=== PATIENT | male | born 1945 | race Caucasian/White ===

== ENCOUNTER 2019-11-04 23:41 | Emergency (ER) | payer OTHER, SELFPAY ==
[2019-04-03 13:09] VITALS: BMI 36.2
[2019-11-04 23:45] VITALS: BP 163/91; PULSE 53; RESP 14; TEMP 36.4; O2SAT 96; BMI 32.3
[2019-11-05 00:03] VITALS: BP 163/91; PULSE 57; RESP 19; TEMP 36.4; O2SAT 96
--- NOTE | 2019-11-05 00:04 | ED.RN ---
RN CALLED FOR EKG, PULLED OLD EKGS FOR
--- NOTE | 2019-11-05 00:15 | EKG12_ITS ---
Test Reason : CP Blood Pressure : / mmHG Vent. Rate : 065 BPM Atrial Rate : 120 BPM P-R Int : 000 ms QRS Dur : 090 ms QT Int : 468 ms P-R-T Axes : 000 036 063 degrees QTc Int : 486 ms Normal sinus rhythm with Premature atrial complexes Prolonged QT Abnormal ECG Confirmed by TORRES MANNING, SHANT ([id number]), telegraph editor SARAH RENTERIA ([id number] on 11/08/2019 2:59:54 PM Referred By: MITZY Confirmed By:SHANT MACDONALD MD
--- NOTE | 2019-11-05 00:16 | ED.DCSUM_ITS ---
History of Present Illness Chief Complaint: Alt LOC Informant: Patient, Family, Seafood Packer Onset: Today Narrative: Patient states he has a history of atrial fibrillation is maintained on Eliquis, metoprolol, and sotalol. He sees [facility] cardiology. He states that he has had 3 cardioversions in the past. Today he was in his usual state of health. He carried some heavy trash bags out to the trash. When he was done he noted a pain nonpleuritic in the right upper chest. He states he felt fatigued and nauseous and went and laid down. Reportedly his found him unresponsive called 911 and started CPR. When EMS arrived she was awake and talking but c onfused. States he remembers feeling clammy. tells me that when he was laying down he asked for cold washcloth. Her and her daughter left the room and when they came back after hearing a weird noise and they went in and found him staring off with saliva at the mouth. They called 911 pulled him to the ground was instructed to give CPR. After about 30 compressions patient stated that it hurt and began to come around. Patient has a history of paroxysmal A. fib and most recently in June had electrical cardioversion. He states [facility] cardiology in [place]. He is maintained on Toprol and sotalol and reports that he increased his metoprolol to 100 mg but cannot tell me exactly when that change occurred. Past Medical History - Allergies and Home Meds Allergies/Adverse Reactions: Allergies Penicillins Allergy (Verified 06/22/13 12:41) Other shellfish derived Allergy (Verified 06/22/13 17:11) Vomiting amiodarone Adverse Reaction (Verified 11/05/19 00:05) Rash Primary Care Physician: Rayo Allred MD [Primary Care Provider] - As soon as possible Surgical History: - - Facetectomy, he has had 2 esophageal dilatations. 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 Denies: Chills, Fever, Sweats Eyes: Denies: Visual changes - bilaterally, Diplopia ENT: Denies: Rhinorrhea, Sore throat Cardiovascular: Reports: Chest pain. Denies: Palpitations Respiratory: Denies: Dyspnea, Cough, Dyspnea on exertion Gastrointestinal: Reports: Nausea. Denies: Abdominal pain, Vomiting, Diarrhea, Melena, Hematochezia Genitourinary: Denies: Dysuria, Hematuria, Frequency Musculoskeletal: Denies: Back pain, Extremity Pain Skin: Denies: Rash, Wounds Neurological: Denies: Headache, Weakness, Numbness Physical Exam Vital Signs/Narrative: Vital Signs Temp Pulse Resp BP Pulse Ox 11/05/19 00:03 97.6 F L 57 L 19 H 163/91 H 96 11/04/19 23:45 97.6 F L 53 L 14 163/91 H 96 General: Well nourished, Well developed, No Acute Distress Head: Normocephalic, Atraumatic Eyes: Perrl, EOMI ENT: Moist mucous membranes, No rhinorrhea Neck: Supple, Nontender Cardiovascular: No murmurs, Irregular Respiratory: No distress, CTA bilaterally, Chest nontender Abdomen: Soft, Nontender, Nondistended, Normal bowel sounds Back: Nontender, Normal Inspection Extremities: Nontender, No edema Skin: Normal color, No rash Neurological: Alert, Oriented x3, Cranial nerves II-XII grossly intact, Normal Strength, Normal Sensation Psychological: Normal affect, Normal Mood Diagnostic/Tx/Re-eval - EKG Initial EKG Interpretation: Atrial Fibrillation - Initial EKG shows atrial fibrillation at a rate of 65. No concerning features of ACS. - Medical Decision Making Initial EKG is probably sinus with frequent PACs but could possibly be A. fib. While in the room he did have a change in the monitor and what seemed more regular and less PACs. There were several pauses noted where his heart rate would go from 60s to the 30s but only for 1 beat. Basic labs were negative troponin negative. Head CT and chest x-ray were negative. Patient was observed on the monitor. At the hospital speak with the patient but is not sure he wants to stay here he may want to go to [place]. After a time to deliberate he is decided he like to go home. He wonders if he should cut his metoprolol in half as his heart resting heart rate right now is in the 60s difficult to say. He like a copy of his labs his EKGs so that he can talk with his welder fitter gas tomorrow. While I think it is probably better for the patient to stay in the hospital he would be transferred to [place] he has capacity to make this decision. I asked specifically if he would like to discuss this with his and his family and he declines. ED Disposition - Plan for ED Patient: Disposition: Home or Assisted Living Diagnosis: Unresponsive episode, Bradycardia, Paroxysmal atrial fibrillation Instructions: Causes of Syncope, ED AFIB Referrals: Rayo Allred MD [Primary Care Provider] - As soon as possible Additional Instructions: These contact your welder fitter gas soon as possible. You are free to return at any point for further evaluation if needed..
--- NOTE | 2019-11-05 00:20 | EKG12_ITS ---
Test Reason : CP Blood Pressure : / mmHG Vent. Rate : 056 BPM Atrial Rate : 056 BPM P-R Int : 172 ms QRS Dur : 098 ms QT Int : 482 ms P-R-T Axes : 057 036 062 degrees QTc Int : 465 ms Sinus bradycardia with Premature supraventricular complexes Otherwise normal ECG Confirmed by TORRES MANNING, SHANT ([id number]), videotape editor SARAH RENTERIA ([id number]) on 11/08/2019 3:00:09 PM Referred By: MITZY Confirmed By:SHANT MACDONALD MD
--- NOTE | 2019-11-05 00:26 | CT_ITS ---
HISTORY: AMS-PT FOUND UNRESPONSIVE,ALERT ND ORIENTED NOWHX:A-FIB,HTN ADDITIONAL HISTORY: None provided. COMPARISON: 09/20/2010 TECHNIQUE: Axial, coronal and sagittal CT images were obtained of the brain without intravenous contrast. Number of images including paperwork: 259. A radiation dose optimization technique was used for this scan. FINDINGS: BRAIN: No acute hemorrhage or mass. No definite acute infarct; MRI more sensitive. White matter hypodensity is nonspecific but most commonly seen with chronic ischemic changes. Generalized atrophy. VENTRICULAR SYSTEM: No hydrocephalus. PARANASAL SINUSES AND MASTOIDS: No air-fluid level in the imaged extent. Mild mucosal thickening noted. ORBITS: Unremarkable imaged extent. SKELETON AND SOFT TISSUES: Calvarium intact. ASPECTS score: Not applicable. CT/Brain/Head without Contrast IMPRESSION: No acute intracranial abnormality. Chronic involutional and white matter changes. Individualized dose optimization techniques were used for this CT. at 0101 Reported and signed by: Antonina Deutsch MD Electronically Signed: Antonina Deutsch MD at 1:01 EDT Tel , Service support ,
--- NOTE | 2019-11-05 00:40 | RAD_ITS ---
HISTORY: found unresponsive by . chest pain upper right chest. hx of afib/flutter, has been cardioverted before. ADDITIONAL HISTORY: None provided. TECHNIQUE: Frontal chest radiograph. Number of images including paperwork: 1 COMPARISON: 06/22/2013 FINDINGS: LUNGS AND PLEURA: No consolidation, mass or pleural effusion. CARDIAC SILHOUETTE: Unremarkable. MEDIASTINUM AND ELSA: Aortic tortuosity. UPPER ABDOMEN: Unremarkable. SKELETON AND SOFT TISSUES: No acute findings. Degenerative changes. OTHER DEVICES AND HARDWARE: None. RAD/Chest 1 View (Portable) IMPRESSION: No acute cardiopulmonary abnormality. at 0058 Reported and signed by: Antonina Deutsch MD Electronically Signed: Antonina Deutsch MD at 0:57 EDT Tel , Service support ,
[2019-11-05 00:59] LABS: ALB/GLOB Ratio 1.2 RATIO (0.9-2.4); AST(SGOT) 33 U/L (15-37); Alanine Aminotransfer ALT/SGPT 35 U/L (16-61); Albumin, Serum 3.6 g/dL (3.2-5.0); Alkaline Phosphatase 93 U/L (45-117); Anion Gap 8 (5-15); BUN 13 mg/dL (7-18); BUN/Creat Ratio 12.6 RATIO (10-20); Calcium,Total 8.9 mg/dL (8.5-10.1); Chloride 105 mmol/L (98-107); Creatinine, Serum 1.03 mg/dL (0.70-1.30); EST Glomerular Filtration Rate 75 mL/min (>60); Est Glom Filt Rate - Afr Amer 90 mL/min (>60); Glucose 166 mg/dL (74-106); Magnesium 2.2 mg/dL (1.6-2.6); Potassium 3.7 mmol/L (3.5-5.1); Protein, Total 6.6 g/dL (6.4-8.2); Sodium Level 141 mmol/L (136-145)
[2019-11-05 01:02] LABS: Absolute Lymphocyte Count 1.18 X10^3/uL (0.83-4.51); Absolute Neutrophil Count 8.3 X10^3/uL (2.0-7.7); Basophil# 0.05 X10^3/uL; Basophil% 0.5 % (0-1); Eosinophil# 0.47 X10^3/uL; Eosinophils% 4.4 % (0-5); Hematocrit 46.9 % (40-54); Hemoglobin 15.5 g/dL (13.0-16.5); Lymphocyte # 1.18 X10^3/ul (4.0); Lymphocyte % 11.1 % (19-41); Mean Corpuscular Volume 87.7 fL (80-94); Monocyte# 0.62 X10^3/uL; Monocyte% 5.8 % (0-10); NRBC Flagged by Analyzer 0 % (0-5); Neutrophil # 8.27 X10^3/uL (2.7-7.7); Neutrophil % 77.9 % (47-70); Platelet Count 207 K/mm3 (150-450); RBC Distribution Width CV 13.8 % (11.6-14.6); RBC Distribution Width SD 43.8 fl (35.1-43.9); Red Blood Count 5.35 M/mm3 (4.6-6.2); White Blood Count 10.6 K/mm3 (4.4-11.0)
--- NOTE | 2019-11-05 01:58 | ED.RN ---
Pt stating to this nurse that he is wanting to go home. Dr Milner made aware.
[2019-11-05 01:59] VITALS: BP 162/73; PULSE 63; RESP 15; TEMP 36.6; O2SAT 99
[2019-11-05 02:06] VITALS: BP 162/73; PULSE 63; RESP 15; TEMP 36.6; O2SAT 98
--- NOTE | 2019-11-05 02:08 | ED.RN ---
Dr Milner spoke with patient and patient still choosing to leave.
== END 2019-11-05 02:16 | disposition home or self-care (01) ==
PROVIDERS: Emergency Provider Emergency Medicine; PCP Internal Medicine
DX: R55 Syncope and collapse (principal); R00.1 Bradycardia, unspecified; I48.0 Paroxysmal atrial fibrillation; Z87.891 Personal history of nicotine dependence; Z79.01 Long term (current) use of anticoagulants; Z88.0 Allergy status to penicillin
CPT/HCPCS: 70450; 71045; 80053; 83735; 84484; 85025; 93005; 99285; A4216

== ENCOUNTER 2022-05-15 14:05 | Emergency (ER) | payer OTHER, MEDICARE, SELFPAY ==
[2022-05-15] VITALS (8 sets, daily range): BP systolic 96–144; BP diastolic 80–104; PULSE 75–163; RESP 10–28; TEMP 36.2–36.4; O2SAT 88–100; BMI 29.4
--- NOTE | 2022-05-15 14:34 | RAD_ITS ---
STUDY: X-RAY CHEST REASON FOR EXAM: Male, 77 years old. Chest pain. Weakness. TECHNIQUE: Single AP portable view of the chest. COMPARISON: Comparison is made with prior study dated 11/05/2019. FINDINGS: EKG lead is seen. Elevation of the right hemidiaphragm. Patchy infiltrate in the right lower lobe with the small right pleural effusion. Mild increased markings at the left lung base. Sternal cerclage wires and vascular clips are present from a prior sternotomy and coronary artery bypass graft procedure (CABG). Prior aortic valve replacement. Normal mediastinum and jamil. Normal visualized pulmonary arteries. Normal visualized aortic arch and descending thoracic aorta. Normal visualized thoracic spine. Normal visualized ribs, clavicles, and shoulders. Hiatal hernia. RAD/Chest 1 View (Portable) IMPRESSION: Small left pleural effusion with right basilar infiltrate. Mild degree of increased markings at the left lung base. Follow-up is recommended. Electronically Signed: Mervin Vora MD at 15:33 EST ,
[2022-05-15 14:44] LABS: Absolute Lymphocyte Count 1.88 X10^3/uL (0.83-4.51); Absolute Neutrophil Count 6.8 X10^3/uL (2.0-7.7); Basophil# 0.05 X10^3/uL; Basophil% 0.5 % (0-1); Eosinophil# 0.09 X10^3/uL; Eosinophils% 0.9 % (0-5); Hematocrit 48.7 % (40-54); Hemoglobin 15.4 g/dL (13.0-16.5); Lymphocyte # 1.88 X10^3/ul (0.83-4.51); Lymphocyte % 19.3 % (19-41); Mean Corp Hgb Conc 31.6 g/dL (32-36); Mean Corpuscular Hgb 28.4 pg (27.0-32.0); Mean Corpuscular Volume 89.9 fL (80-94); Mean Platelet Vol. 11.5 fl (6.2-12.0); Monocyte# 0.83 X10^3/uL; Monocyte% 8.5 % (0-10); NRBC Flagged by Analyzer 0 % (0-5); Neutrophil # 6.84 X10^3/uL (2.7-7.7); Neutrophil % 70.5 % (47-70); Platelet Count 219 K/mm3 (150-450); RBC Distribution Width CV 14.7 % (11.6-14.6); RBC Distribution Width SD 48.6 fl (35.1-43.9); Red Blood Count 5.42 M/mm3 (4.6-6.2); White Blood Count 9.7 K/mm3 (4.4-11.0)
[2022-05-15 14:53] LABS: International Normalized Ratio 1.3; Prothrombin Time (Protime)PT. 15.9 SECONDS (11.7-14.9)
[2022-05-15 14:54] LABS: Partial Thromboplast Time 39.9 Seconds (24.1-36.2)
[2022-05-15 15:02] LABS: BNP,B-Type NATRIURETIC PEPTIDE 273.8 pg/mL (0-100)
[2022-05-15 15:08] LABS: ALB/GLOB Ratio 1.2 RATIO (0.9-2.4); AST(SGOT) 28 U/L (15-37); Alanine Aminotransfer ALT/SGPT 50 U/L (16-61); Albumin, Serum 3.5 g/dL (3.2-5.0); Alkaline Phosphatase 117 U/L (45-117); Anion Gap 6 (5-15); BUN 21 mg/dL (7-18); Calcium,Total 9.5 mg/dL (8.5-10.1); Chloride 102 mmol/L (98-107); EST Glomerular Filtration Rate 52 mL/min (>60); Est Glom Filt Rate - Afr Amer 63 mL/min (>60); Glucose 142 mg/dL (74-106); Magnesium 2.7 mg/dL (1.6-2.6); Potassium 4.5 mmol/L (3.5-5.1); Protein, Total 6.5 g/dL (6.4-8.2); Sodium Level 139 mmol/L (136-145); Thyroid Stim Hormone (TSH) 3.88 uIU/mL (0.358-3.74)
--- NOTE | 2022-05-15 15:16 | ED.RN ---
episodes of bradycardic HR in 30s printed from monitor. pt denies feeling SOB or chest pain with HR in 160s.
[2022-05-15] MEDS: fentaNYL 100 MCG/2 ML Ampul 25 MCG IV (16:32)
[2022-05-15] MEDS: Etomidate 20 MG/10 ML Vial 14 MG IV (16:32)
--- NOTE | 2022-05-15 16:50 | EX.ED.DYSGE1 ---
HPI History of Present Illness Chief Complaint: General Illness Informant: patient Narrative Narrative: 77-year-old male presenting to the emergency room with sensation that his heart is racing. Patient notes that in 1999 he had triple bypass surgery and is currently on apixaban sotalol and metoprolol. He also takes supplemental magnesium. He does remember having a cardiac arrest in 1999 that led to his transfer as well as postoperatively having atrial fibrillation. He notes he has not missed any doses of his apixaban recently. He denies chest pain. [facility] Medical History Atrial fibrillation Coronary artery disease GERD (gastroesophageal reflux disease) Hypertension Sleep apnea Home Medications Tumeric Root Extract 500 mg PO DAILY 06/22/13 [History Last Taken Unknown] coenzyme Q10 50 mg-vitamin E 5 unit capsule (Co Q-10 (with Vit E)) 1 ea PO DAILY 06/22/13 [History Last Taken Unknown] loratadine 10 mg tablet (Allergy Relief (loratadine)) 10 mg PO DAILY PRN PRN Allergies 06/22/13 [History Last Taken Unknown] multivitamin with folic acid 400 mcg tablet (Thera) 1 tab PO DAILY 06/22/13 [History Last Taken Unknown] Mita [place] 1 tab PO DAILY 11/05/19 [History Last Taken Unknown] apixaban 5 mg tablet 5 mg PO BID 11/05/19 [History Last Taken Unknown] magnesium oxide 400 mg PO DAILY 11/05/19 [History Last Taken Unknown] metoprolol succinate 100 mg capsule sprinkle, ext. release 24 hr 100 mg PO DAILY 11/05/19 [History Last Taken Unknown] sotalol 80 mg tablet 80 mg PO BID 11/05/19 [History Last Taken Unknown] Allergy/AdvReac Type Severity Reaction Status Date / Time Penicillins Allergy Other Verified 05/15/22 14:13 shellfish derived Allergy Vomiting Verified 05/15/22 14:13 amiodarone AdvReac Rash Verified 05/15/22 14:13 Surgical History Hx of CABG Social History Smoking Status: Former smoker ROS ROS ED Constitutional Constitutional ED: Denies chills or weight loss Eyes Eyes: Denies change in vision or diplopia ENT ENT ED: Denies ear pain, rhinorrhea or sore throat Cardiovascular Cardiovascular: Reports palpitations and racing heartbeat; Denies chest pain or orthopnea Respiratory/Chest Respiratory/Chest: Denies cough, dyspnea or orthopnea Gastrointestinal Gastrointestinal: Denies abdominal pain, diarrhea, nausea or vomiting Genitourinary Genitourinary ED: Denies dysuria, hematuria or urinary frequency Musculoskeletal Musculoskeletal: Denies arthralgias or myalgias Integumentary Denies abscess or rash Neurologic Neurologic: Denies headache(s) or weakness Psychiatric Psychiatric: Denies anxiety, depression, suicidal ideation or suicidal thoughts Endocrine Endocrinology: Denies polydipsia, polyphagia or polyuria Allergic/Immunologic Allergic/Immunologic ED: Denies mouth swelling, tongue swelling or urticaria EXAM Physical Exam Const Vital Signs: 05/15/22 14:07 05/15/22 14:39 05/15/22 15:15 Temperature 97.1 F L Temperature Source Temporal Pulse Rate 163 H Pulse Rate [1 (Initial Baseline)] Pulse Rate [2] Pulse Rate [3] Respiratory Rate 18 22 H Respiratory Rate [1 (Initial Baseline)] Respiratory Rate [2] Respiratory Rate [3] Respiratory Effort Normal Non-Labored Respiratory Pattern Normal Blood Pressure 96/80 98/83 H Blood Pressure [1 (Initial Baseline)] Blood Pressure [2] Blood Pressure [3] Blood Pressure Mean 85 88 Pulse Ox 98 Oxygen Delivery Method Room Air Room Air Oxygen Delivery Method [2] Oxygen Delivery Method [3] Oxygen Flow Rate (L/min) [2] Oxygen Flow Rate (L/min) [3] 05/15/22 16:20 05/15/22 16:37 Temperature 97.5 F L Temperature Source Pulse Rate 156 H Pulse Rate [1 (Initial Baseline)] 162 H Pulse Rate [2] 78 Pulse Rate [3] 75 Respiratory Rate 20 H Respiratory Rate [1 (Initial Baseline)] 28 H Respiratory Rate [2] 16 Respiratory Rate [3] 10 L Respiratory Effort Respiratory Pattern Blood Pressure 113/81 H Blood Pressure [1 (Initial Baseline)] 102/89 H Blood Pressure [2] 132/104 H Blood Pressure [3] 135/99 H Blood Pressure Mean Pulse Ox 97 Oxygen Delivery Method Room Air Oxygen Delivery Method [2] Nasal Cannula Oxygen Delivery Method [3] Nasal Cannula Oxygen Flow Rate (L/min) [2] 4 Oxygen Flow Rate (L/min) [3] 4 Positive well nourished, well developed and obese General Appearance ED: well developed Nutritional Appearance: obese HEENT Reports normocephalic, head/scalp atraumatic and moist mucous membranes Eyes PERRL and EOMs intact bilaterally Neck no lymphadenopathy, supple and no JVD Resp normal respiratory effort and clear to auscultation bilaterally Cardio no murmurs Rate: tachycardic Rhythm: abnormal rhythm irregularly irregular GI normal to inspection, nondistended, normoactive bowel sounds and non-tender Palpation: soft Back/Spine no CVA tenderness and normal ROM Extremity normal to inspection General Extremety ED: Negative for edema General Extremity: Negative for edema Neuro oriented x3 and CN's II-XII intact bilaterally Sensorium / Orientation: alert Motor Exam: strength 5/5 throughout Psych mental status grossly normal Mood & Affect: Negative for depressed or tearful Skin no rashes or lesions noted and no wounds MDM MDM MDM Narrative Medical decision making narrative: EKG was obtained which confirms atrial fibrillation with a ventricular rate of 163 bpm. Basic blood work was checked and is negative. My interpretation of the chest x-ray is no acute process. Patient provided written and informed consent for the use of etomidate for procedural sedation for electrical cardioversion. I think this is a very safe option for him that would allow him not to have to be admitted to the hospital for successful as he has been reportedly very stable on his medicines and not missed any blood thinning doses. Patient received 0.15 mix per keg of etomidate. He also received a small dose of fentanyl. Once adequate sedation was obtained the patient underwent a 200 J synchronized shock to the heart which resulted in return to sinus rhythm. Patient was allowed to recover. He did have a short episode of apnea. At this point patient will be discharged and instructions to follow-up with his accounts payable analyst who is in [place] Lab Data Attestation: I reviewed the patient's lab results. Labs: Laboratory Results - last 24 hr 05/15/22 05/15/22 05/15/22 14:34 14:34 14:34 WBC 9.7 RBC 5.42 Hgb 15.4 Hct 48.7 MCV 89.9 MCH 28.4 MCHC 31.6 L RDW Std Deviation 48.6 H RDW Coeff of David 14.7 H Plt Count 219 MPV 11.5 Immature Gran % (Auto) 0.300 Neut % (Auto) 70.5 H Lymph % (Auto) 19.3 Pope % (Auto) 8.5 Eos % (Auto) 0.9 Baso % (Auto) 0.5 Absolute Neuts (auto) 6.8 Absolute Lymphs (auto) 1.88 Nucleated RBC % 0 PT 15.9 H INR 1.3 APTT 39.9 H Sodium 139 Potassium 4.5 Chloride 102 Carbon Dioxide 31.0 Anion Gap 6 BUN 21 H Creatinine 1.40 H Estim Creat Clear Calc 44.90 Est GFR (MDRD) Af Amer 63 Est GFR (MDRD) Non-Af 52 L BUN/Creatinine Ratio 15.0 Glucose 142 H Calcium 9.5 Magnesium 2.7 H Total Bilirubin 1.30 H AST 28 ALT 50 Alkaline Phosphatase 117 B-Natriuretic Peptide Total Protein 6.5 Albumin 3.5 Globulin 3.0 Albumin/Globulin Ratio 1.2 TSH 3.88 H 05/15/22 14:34 WBC RBC Hgb Hct MCV MCH MCHC RDW Std Deviation RDW Coeff of David Plt Count MPV Immature Gran % (Auto) Neut % (Auto) Lymph % (Auto) Pope % (Auto) Eos % (Auto) Baso % (Auto) Absolute Neuts (auto) Absolute Lymphs (auto) Nucleated RBC % PT INR APTT Sodium Potassium Chloride Carbon Dioxide Anion Gap BUN Creatinine Estim Creat Clear Calc Est GFR (MDRD) Af Amer Est GFR (MDRD) Non-Af BUN/Creatinine Ratio Glucose Calcium Magnesium Total Bilirubin AST ALT Alkaline Phosphatase B-Natriuretic Peptide 273.8 H Total Protein Albumin Globulin Albumin/Globulin Ratio TSH Radiography Diagnostic Testing: Clinical Impression(s) from Imaging Studies Chest X-Ray 05/15/22 14:34 IMPRESSION: Small left pleural effusion with right basilar infiltrate. Mild degree of increased markings at the left lung base. Follow-up is recommended. Electronically Signed: Mervin Vora MD at 15:33 EST , Discharge Plan Triage Chief Complaint: General Illness ED Provider: Yossi Milner Dx/Rx/DC Orders Clinical Impression: Obstructive sleep apnea of adult, Hypertension, Paroxysmal atrial fibrillation Instructions: AFib Prescriptions: No Action loratadine [Allergy Relief (loratadine)] 10 MG tablet 10 mg PO DAILY PRN PRN (Reason: Allergies) Label Comments: Allergies Only during spring summer and fall coenzyme [id number] [Co Q-10 (with Vit E)] 1 EACH capsule 1 ea PO DAILY Label Comments: Joint health multivitamin with folic acid [Thera] 1 TABLET tablet 1 tab PO DAILY Label Comments: Multivitamin Tumeric Root Extract 500 MG tablet 500 mg PO DAILY Label Comments: Antioxidant sotalol 80 MG tablet 80 mg PO BID apixaban 5 MG tablet 5 mg PO BID metoprolol succinate 100 MG capsule,sprinkle,ER 24hr 100 mg PO DAILY magnesium oxide 400 MG tablet 400 mg PO DAILY Mita [place] 1 tab PO DAILY Primary Care Provider: Rayo Allred Referrals: Rayo Allred MD [Primary Care Provider] - Activity Restrictions/Additional Instructions: Please follow-up with your accounts payable analyst as soon as possible Disposition Disposition: Home, Self Care
--- NOTE | 2022-05-15 17:06 | ED.RN ---
post procedure, pt was having periods of apnea, respiratory therapy used ambubag briefly.
== END 2022-05-15 17:53 | disposition home or self-care (01) ==
PROVIDERS: Emergency Provider Emergency Medicine; PCP Internal Medicine; Visit Provider Emergency Medicine
DX: G47.33 Obstructive sleep apnea (adult) (pediatric) (principal); I48.0 Paroxysmal atrial fibrillation; Z87.891 Personal history of nicotine dependence; I10 Essential (primary) hypertension; I25.10 Atherosclerotic heart disease of native coronary artery without angina pectoris; K21.9 Gastro-esophageal reflux disease without esophagitis; Z95.1 Presence of aortocoronary bypass graft; R07.9 Chest pain, unspecified; R53.1 Weakness; E66.9 Obesity, unspecified
CPT/HCPCS: 71045; 80053; 83735; 83880; 84443; 85025; 85610; 85730; 93005; 99284; J7040; A4216

== ENCOUNTER 2022-07-18 15:06 | Inpatient (IN) | payer MEDICARE, SELFPAY ==
[2022-07-18] VITALS (15 sets, daily range): BP systolic 82–115; BP diastolic 60–98; PULSE 81–160; RESP 18–27; TEMP 36–36.6; O2SAT 94–99; BMI 31.5; BMI 33.0
--- NOTE | 2022-07-18 15:35 | EKG12_ITS ---
Test Reason : Blood Pressure : / mmHG Vent. Rate : 164 BPM Atrial Rate : 000 BPM P-R Int : 000 ms QRS Dur : 082 ms QT Int : 298 ms P-R-T Axes : 000 049 173 degrees QTc Int : 492 ms Supraventricular tachycardia T wave abnormality, consider lateral ischemia Abnormal ECG Confirmed by TORRES MANNING, SHANT ([id number]), health editor DARREL WYNN ([id number]) on 07/22/2022 10:35:28 AM Referred By: NIDA Confirmed By:SHANT MACDONALD MD
--- NOTE | 2022-07-18 15:36 | EDS_ITS ---
HPI History of Present Illness Chief Complaint: Shortness of Breath Narrative Narrative: 77-year-old male past medical history of GERD, hypertension, states has been short of breath for the last few weeks. He saw his primary care provider on the , 8 days ago, and was diagnosed with SVT. He states he has not followed up with cardiology regarding this. He states his heart rate was in the 160 his back then, but he has never had to come to the emergency department. He is having continued shortness of breath and mild dyspnea on exertion. He has chronic leg swelling but states they are not more swollen than usual. He presents mainly because of the shortness of breath that has been increasing over time. [facility] Medical History Atrial fibrillation Coronary artery disease GERD (gastroesophageal reflux disease) Hypertension Sleep apnea Home Medications apixaban 2.5 mg tablet (Eliquis) 2.5 mg PO BID AFIB 07/18/22 [History Last Taken 07/18/22] atorvastatin 80 mg tablet 80 mg PO DAILY CHOLESTEROL 07/18/22 [History Last Taken 07/18/22] magnesium 250 mg tablet 250 mg PO DAILY SUPPLEMENT 07/18/22 [History Last Taken 07/18/22] metoprolol succinate 100 mg tablet,extended release 24 hr 100 mg PO DAILY HEART 07/18/22 [History Last Taken 07/18/22] wboxxxwh-hspcwtmr-akssv acid 400 mcg-vit K 20 mcg-lycop 300 mcg tablet (One-A-Day Men's Multivitamin) 1 tab PO DAILY SUPPLEMENT 07/18/22 [History Last Taken 07/18/22] potassium gluconate 550 mg (90 mg) tablet 550 mg PO DAILY SUPPLEMENT 07/18/22 [History Last Taken 07/18/22] saw palmetto 450 mg capsule 450 mg PO DAILY SUPPLEMENT 07/18/22 [History Last Taken 07/18/22] Allergy/AdvReac Type Severity Reaction Status Date / Time Penicillins Allergy Other Verified 07/18/22 15:06 shellfish derived Allergy Vomiting Verified 07/18/22 15:06 amiodarone AdvReac Rash Verified 07/18/22 15:06 Surgical History Hx of CABG Social History Smoking Status: Former smoker ROS ROS ED ROS Narrative Constitutional: No fever, no chills. HEENT: No sore throat. No neck pain. No loss of vision. No rhinorrhea. Cardiovascular: No chest pain. No palpitations. Chronic bilateral pedal edema. Respiratory: Occasional nonproductive cough, positive dyspnea on exertion and shortness of breath. Abdominal: No abdominal pain. No nausea. No vomiting. Genitourinary: No dysuria. No hematuria. Musculoskeletal: No myalgias. No arthralgias. Neurologic: No headaches. No dizziness. No lightheadedness. Skin: No rash. No change in color. Psychiatric: No depression. No anxiety. EXAM Physical Exam Narrative Exam Narrative: Afebrile. Vital signs noted. HEENT: Normocephalic. Atraumatic. PERRL, EOMI. Neck soft and supple. No point tenderness or step off. Cardiovascular: Positive tachycardia in the 160s, no murmurs, rubs, or gallops appreciated. Respiratory: No tachypnea. Lungs clear to auscultation bilaterally. Gastrointestinal: Abdomen soft, nontender, with normoactive bowel sounds. No rebound or guarding. Neurological: Awake. Alert. Nonfocal, nonlateralizing. Skin: No rash. Normal color. No pallor. Musculoskeletal: Bilateral symmetric pedal edema. Full range of motion extremities. Const Vital Signs: 07/18/22 15:06 07/18/22 16:10 07/18/22 16:18 Temperature 96.8 F L Temperature Source Temporal Pulse Rate 160 H 152 H Respiratory Rate 18 20 H Respiratory Effort Respiratory Depth Respiratory Pattern Blood Pressure 115/89 H 105/88 H 98/80 Blood Pressure Mean 97 93 86 Blood Pressure Source Blood Pressure Position Blood Pressure Location Pulse Ox 99 99 Oxygen Delivery Method Room Air Nasal Cannula Oxygen Flow Rate (L/min) 2 07/18/22 16:48 07/18/22 16:06 07/18/22 17:27 Temperature 97.9 F Temperature Source Temporal Pulse Rate 151 H 160 H Respiratory Rate 20 H 23 H Respiratory Effort Normal Non-Labored Respiratory Depth Normal Respiratory Pattern Normal Blood Pressure 103/78 82/60 L Blood Pressure Mean 86 67 Blood Pressure Source Blood Pressure Position Blood Pressure Location Pulse Ox 95 Oxygen Delivery Method Room Air Room Air Room Air Oxygen Flow Rate (L/min) 07/18/22 18:30 07/18/22 18:52 Temperature Temperature Source Pulse Rate 160 H Respiratory Rate 19 H Respiratory Effort Respiratory Depth Respiratory Pattern Blood Pressure 88/62 L 101/88 H Blood Pressure Mean 70 92 Blood Pressure Source Monitor Blood Pressure Position Semi-Fowlers Blood Pressure Location Left Arm Pulse Ox Oxygen Delivery Method Oxygen Flow Rate (L/min) MDM MDM MDM Narrative Medical decision making narrative: Patient presents with chief complaint of shortness of breath, but has supraventricular tachycardia. Vagal maneuvers were attempted without success of reduction in his heart rate. Comprehensive work-up was pursued. He will be given adenosine 6 mg intravenously to see what his underlying rhythm is. Of note, he required another dose of adenosine. This time, it was 12 mg, and he had a brief pause which showed probable underlying atrial fibrillation. He was then given Lopressor 5 mg as he takes metoprolol. I reviewed his outpatient record from the [facility] during his outpatient visit/home-going instructions. He states he has a history of atrial fibrillation for which he takes Eliquis. However, his dosing is only 2.5 mg daily. He is unsure if he has taken a dose every day for the last 2 weeks, but is pretty sure. After 5 mg of Lopressor, his heart rate is in the 150s. He will be given an additional dose of Lopressor. I reviewed his laboratory work. CBC shows normal white count at 10.7, hemoglobin 15.8, platelet count of 221. Sodium slightly low at 135 with BUN of 46 and a creatinine of 1.97, glucose appropriately elevated at 121 with a low anion gap of 4. High-sensitivity troponin is 45. BNP is elevated at 682. I do feel that if he has been in atrial fibrillation with rapid ventricular response for a while that this may be contributing to the rise in his BNP. Chest x-ray obtained and interpreted by myself, there is a right lower lobe infiltrate with small pleural effusion. I reviewed the radiology report and they confirm. Although he does not have a white count or fever, given his shortness of breath he will be treated with Levaquin as he has an allergy to penicillins. He also has intolerance to lisinopril, so I do feel that given the uncertainty of his allergic reaction that this would be the better choice for community-acquired pneumonia. Blood cultures will be obtained along with COVID swab. I do feel that he will require admission not necessarily for his pneumonia, but for his atrial fibrillation with rapid ventricular response. His EKG was obtained and interpreted by myself which showed a clemens praventricular tachycardia at [address] changes. No STEMI. Additionally, further printouts from his office visits were reviewed that the patient had with him. He has had a tachycardia for the last few weeks. I discussed patient with Dr. Abdul. Patient will be admitted to the PCU. He had no response to his second dose of Lopressor so he was started on a Cardizem drip. Initially was held because of transient hypotension. He was given a small 500 cc bolus. Additionally, I do feel that it may be more rate dependent hypotension. Disposition is admit and stable condition. Lab Data Attestation: I reviewed the patient's lab results. Labs: Laboratory Results - last 24 hr 07/18/22 07/18/22 07/18/22 15:40 15:40 15:40 WBC 10.7 RBC 5.61 Hgb 15.8 Hct 48.8 MCV 87.0 MCH 28.2 MCHC 32.4 RDW Std Deviation 47.7 H RDW Coeff of David 15.1 H Plt Count 221 MPV 11.3 Immature Gran % (Auto) 0.400 Neut % (Auto) 72.3 H Lymph % (Auto) 15.6 L Throckmorton % (Auto) 11.0 H Eos % (Auto) 0.4 Baso % (Auto) 0.3 Absolute Neuts (auto) 7.7 Absolute Lymphs (auto) 1.66 Nucleated RBC % 0 Sodium 135 L Potassium 4.7 Chloride 102 Carbon Dioxide 29.0 Anion Gap 4 L BUN 46 H Creatinine 1.97 H Estim Creat Clear Calc 31.91 Est GFR (MDRD) Af Amer 43 L Est GFR (MDRD) Non-Af 35 L BUN/Creatinine Ratio 23.4 H Glucose 121 H Calcium 9.2 Troponin I High Sens 45 B-Natriuretic Peptide 682.6 H Radiography Diagnostic Testing: Clinical Impression(s) from Imaging Studies Chest X-Ray 07/18/22 16:20 IMPRESSION: Right basilar infiltrate. Mild cardiomegaly with interstitial edema and moderate right pleural effusion. Electronically Signed: Levar Cid MD at 16:58 EST , Discharge Plan Dx/Rx/DC Orders Clinical Impression: Atrial fibrillation with rapid ventricular response, Pneumonia, CHF (congestive heart failure) Disposition Disposition: Acute Care Hospital [facility] Discharge Date/Time: 07/18/22 19:26
[2022-07-18 16:04] LABS: Absolute Lymphocyte Count 1.66 X10^3/uL (0.83-4.51); Absolute Neutrophil Count 7.7 X10^3/uL (2.0-7.7); Basophil# 0.03 X10^3/uL; Basophil% 0.3 % (0-1); Eosinophil# 0.04 X10^3/uL; Eosinophils% 0.4 % (0-5); Hematocrit 48.8 % (40-54); Hemoglobin 15.8 g/dL (13.0-16.5); Lymphocyte # 1.66 X10^3/ul (0.83-4.51); Lymphocyte % 15.6 % (19-41); Mean Corp Hgb Conc 32.4 g/dL (32-36); Mean Corpuscular Hgb 28.2 pg (27.0-32.0); Mean Platelet Vol. 11.3 fl (6.2-12.0); Monocyte# 1.17 X10^3/uL; NRBC Flagged by Analyzer 0 % (0-5); Neutrophil # 7.71 X10^3/uL (2.7-7.7); Neutrophil % 72.3 % (47-70); Platelet Count 221 K/mm3 (150-450); RBC Distribution Width CV 15.1 % (11.6-14.6); RBC Distribution Width SD 47.7 fl (35.1-43.9); Red Blood Count 5.61 M/mm3 (4.6-6.2); White Blood Count 10.7 K/mm3 (4.4-11.0)
[2022-07-18] MEDS: Adenosine 6 MG/2 ML Syringe IV (16:10)
[2022-07-18] MEDS: Adenosine 6 MG/2 ML Syringe 12 MG IV (16:12)
--- NOTE | 2022-07-18 16:20 | RAD_ITS ---
INDICATION: Shortness of Breath EXAMINATION/TECHNIQUE: X-RAY - XR Chest 1 View COMPARISON: 05/15/2022. FINDINGS: Patchy opacities in the right lower lobe. Slight increase in interstitial markings. Tortuous and calcified thoracic aorta. The heart is mildly enlarged. Moderate right pleural effusion. No pneumothorax. Degenerative changes of the thoracic spine. RAD/Chest 1 View (Portable) IMPRESSION: Right basilar infiltrate. Mild cardiomegaly with interstitial edema and moderate right pleural effusion. Electronically Signed: Levar Cid MD at 16:58 EST ,
[2022-07-18 16:30] LABS: Anion Gap 4 (5-15); BUN 46 mg/dL (7-18); BUN/Creat Ratio 23.4 RATIO (10-20); Calcium,Total 9.2 mg/dL (8.5-10.1); Chloride 102 mmol/L (98-107); Creatinine, Serum 1.97 mg/dL (0.70-1.30); EST Glomerular Filtration Rate 35 mL/min (>60); Est Glom Filt Rate - Afr Amer 43 mL/min (>60); Estimated Creatinine Clearance 31.91 ml/min; Glucose 121 mg/dL (74-106); Potassium 4.7 mmol/L (3.5-5.1); Sodium Level 135 mmol/L (136-145); Troponin-I HS 45 pg/mL (3.0-78.0)
[2022-07-18 16:39] LABS: BNP,B-Type NATRIURETIC PEPTIDE 682.6 pg/mL (0-100)
[2022-07-18] MEDS: Metoprolol Tartrate 5 MG/5 ML Vial IV ×2 (16:42→17:41)
--- NOTE | 2022-07-18 17:37 | NURSING ---
PCU TERELETSJOSUE AFIB WITH RVR, PNEUMONIA
[2022-07-18] MEDS: levoFLOXacin IV 750 MG/150 ML BAG 100 MG IV (17:42)
--- NOTE | 2022-07-18 17:55 | NURSING ---
CV ICU 203
--- NOTE | 2022-07-18 17:56 | NURSING ---
CV ICU 203
--- NOTE | 2022-07-18 19:02 | HP.PCM.HOS_ITS ---
HPI - General General Date of Admission: 07/18/22 Date of Service: 07/18/22 Chief Complaint: Shortness of breath HPI Narrative JORGE ORDOÑEZ, is a 77 M who presents to the emergency room at [facility] for evaluation of shortness of breath, patient is a poor informant, he says he has been short of breath for the last few days. Patient states that shortness of breath is mostly on exertion. Patient brought medical records from his physician's office that shows he was in his PCPs office on 05 July 2022 and was told to go to the emergency room for evaluation-patient does not give a reason why he did not go to the ER, he states he felt he would get better on his own. It appears the patient was in atrial fibrillation at that time with a fast ventricular response. There is also another visit from approximately a week later-I believe July 10, 2022 which also tells the patient to go to the emergency room for evaluation for rapid heart rate. Patient did not go to the emergency room however. Patient admits to having a history of A. fib in the past, he was on full dose Eliquis at 5 mg twice daily but he states he had some bruising and was told to decrease his dosage. Patient does not follow-up with a rn licensed practical on a routine basis, he admits to having a coronary artery bypass 3 years ago. Work-up in the emergency room included an EKG which showed his heart rate to be 160, chest x-ray was performed which showed a right lower lobe infiltrate along with effusion. Patient CBC was unremarkable, patient's CHEM panel showed a creatinine of 1.97, BUN was 46, and his beta natruretic peptide was 682. Patient's blood pressure was running in the high 80s systolic in the emergency room, he was given a 500 cc fluid bolus and at the time of this dictation, his systolic blood pressure is in the low 100s. Patient is yet to be placed on Cardizem drip in the ER, he will be placed in stepdown on PCU but he will need to be transferred to ICU 203 due to bed availability. I had a brief discussion with him and his daughter (by phone) about his allergy to amiodarone-patient does not remember what kind of allergy he had to amiodarone-the medical records list it as a rash, patient knows that we may have to use amiodarone for rate control and the daughter would like him placed on Benadryl if we have to use amiodarone. Patient denies any history of having severe allergic reaction to amiodarone in the past. [facility] Medical History Atrial fibrillation Coronary artery disease GERD (gastroesophageal reflux disease) Hypertension Sleep apnea Home Medications apixaban 2.5 mg tablet (Eliquis) 2.5 mg PO BID AFIB 07/18/22 [History Last Taken 07/18/22] atorvastatin 80 mg tablet 80 mg PO DAILY CHOLESTEROL 07/18/22 [History Last Taken 07/18/22] magnesium 250 mg tablet 250 mg PO DAILY SUPPLEMENT 07/18/22 [History Last Taken 07/18/22] metoprolol succinate 100 mg tablet,extended release 24 hr 100 mg PO DAILY HEART 07/18/22 [History Last Taken 07/18/22] lxuvyekv-pjdqbxaa-gmvzn acid 400 mcg-vit K 20 mcg-lycop 300 mcg tablet (One-A-Day Men's Multivitamin) 1 tab PO DAILY SUPPLEMENT 07/18/22 [History Last Taken 07/18/22] potassium gluconate 550 mg (90 mg) tablet 550 mg PO DAILY SUPPLEMENT 07/18/22 [History Last Taken 07/18/22] saw palmetto 450 mg capsule 450 mg PO DAILY SUPPLEMENT 07/18/22 [History Last Taken 07/18/22] Allergy/AdvReac Type Severity Reaction Status Date / Time Penicillins Allergy Other Verified 07/18/22 15:06 shellfish derived Allergy Vomiting Verified 07/18/22 15:06 amiodarone AdvReac Rash Verified 07/18/22 15:06 Surgical History Hx of CABG Social History Smoking Status: Former smoker ROS Constitutional Constitutional: Denies anorexia, change in weight, chills, fatigue, fever(s), malaise, night sweats or weakness Eyes Eyes: Denies blurry vision, change in vision, discharge from eye(s) or eye pain Cardiovascular Cardiovascular: Reports dyspnea on exertion; Denies chest pain, claudication, e laura, lightheadedness, orthopnea or palpitations Respiratory/Chest Respiratory/Chest: Reports dyspnea and shortness of breath with exertion; Denies cough, excessive phlegm production, hemoptysis, productive cough or shortness of breath at rest Gastrointestinal Gastrointestinal: Denies abdominal pain, coffee ground emesis, constipation, diarrhea, hematemesis, hematochezia, melena, nausea or vomiting Genitourinary Genitourinary: Denies dysuria, hematuria, urinary frequency, urinary hesitancy, urinary incontinence or urinary urgency Musculoskeletal Musculoskeletal: Denies back pain, joint pain, joint stiffness, joint swelling, myalgias or neck pain Neurologic Neurologic: Denies abnormal gait, abnormal speech, dizziness, focal weakness, headache(s), loss of vision, numbness, other visual disturbances, paresthesias, syncope or tingling Psychiatric Psychiatric: Denies anxiety, cognitive impairment, depression, irritability, mood swings or suicidal ideation Endocrine Endocrinology: Denies change in body appearance, cold intolerance, excessive sweating, heat intolerance, polydipsia or polyuria Hematologic/Lymphatic Hematologic/Lymphatic: Denies none, anemia, easy bleeding, easy bruising or lymphadenopathy Allergic/Immunologic Allergic/Immunologic: Denies rhinitis, urticaria, eczemia or asthma Vital Signs Vital Signs Vital Signs: 07/18/22 15:06 07/18/22 16:10 07/18/22 16:18 Temperature 96.8 F L Temperature Source Temporal Pulse Rate 160 H 152 H Respiratory Rate 18 20 H Respiratory Effort Respiratory Depth Respiratory Pattern Blood Pressure 115/89 H 105/88 H 98/80 Blood Pressure Mean 97 93 86 Blood Pressure Source Blood Pressure Position Blood Pressure Location Pulse Ox 99 99 Oxygen Delivery Method Room Air Nasal Cannula Oxygen Flow Rate (L/min) 2 07/18/22 16:48 07/18/22 16:06 07/18/22 17:27 Temperature 97.9 F Temperature Source Temporal Pulse Rate 151 H 160 H Respiratory Rate 20 H 23 H Respiratory Effort Normal Non-Labored Respiratory Depth Normal Respiratory Pattern Normal Blood Pressure 103/78 82/60 L Blood Pressure Mean 86 67 Blood Pressure Source Blood Pressure Position Blood Pressure Location Pulse Ox 95 Oxygen Delivery Method Room Air Room Air Room Air Oxygen Flow Rate (L/min) 07/18/22 18:30 07/18/22 18:52 Temperature Temperature Source Pulse Rate 160 H Respiratory Rate 19 H Respiratory Effort Respiratory Depth Respiratory Pattern Blood Pressure 88/62 L 101/88 H Blood Pressure Mean 70 92 Blood Pressure Source Monitor Blood Pressure Position Semi-Fowlers Blood Pressure Location Left Arm Pulse Ox Oxygen Delivery Method Oxygen Flow Rate (L/min) Weight Weight: 99.79 kg Body Mass Index (BMI) 31.5 Physical Exam Const alert, oriented x3, no apparent distress and average body habitus General Appearance: cooperative, well kempt and well developed Orientation / Consciousness: awake, oriented to person, oriented to place and oriented to time HEENT normocephalic, head/scalp atraumatic, hearing grossly normal bilaterally and moist oral mucous membranes Eyes PERRL, EOMs intact bilaterally and conjunctivae normal Neck supple, no JVD, thyroid normal and no carotid bruits General: trachea midline Resp normal respiratory effort, no retractions and no use of accessory muscles Resp Narrative: There is decreased breath sounds at the patient's right lung base along with some inspiratory rales Auscultation: rales; Negative for rhonchi or wheezes Cardio regular rate, regular rhythm, S1 normal heart sound, S2 normal heart sound, no murmurs and no rub Cardio Narrative: Heart rate and rhythm is tachycardic GI normal to inspection, nondistended, normoactive bowel sounds, soft to palpation, non-tender and non-distended Extremity Extremity Narrative: There is +1 to 2 mm pitting edema in the lower legs bilaterally Skin no rashes or lesions noted General Skin Exam: no breakdown Neuro oriented x3, CN's II-XII intact bilaterally, moves all extremities, no focal motor deficits and no sensory deficits noted Sensorium / Orientation: awake, alert, oriented to person, oriented to place and oriented to time Speech: speech normal Psych affect normal Results Lab / Micro Data Result Diagrams: 07/18/22 15:40 07/18/22 15:40 Labs: Laboratory Results - last 24 hr 07/18/22 15:40: WBC 10.7, RBC 5.61, Hgb 15.8, Hct 48.8, MCV 87.0, MCH 28.2, MCHC 32.4, RDW Std Deviation 47.7 H, RDW Coeff of David 15.1 H, Plt Count 221, MPV 11.3, Immature Gran % (Auto) 0.400, Neut % (Auto) 72.3 H, Lymph % (Auto) 15.6 L, Toombs % (Auto) 11.0 H, Eos % (Auto) 0.4, Baso % (Auto) 0.3, Absolute Neuts (auto) 7.7, Absolute Lymphs (auto) 1.66, Nucleated RBC % 0 07/18/22 15:40: Sodium 135 L, Potassium 4.7, Chloride 102, Carbon Dioxide 29.0, Anion Gap 4 L, BUN 46 H, Creatinine 1.97 H, Estim Creat Clear Calc 31.91, Est GFR (MDRD) Af Amer 43 L, Est GFR (MDRD) Non-Af 35 L, BUN/Creatinine Ratio 23.4 H , Glucose 121 H, Calcium 9.2, Troponin I High Sens 45 07/18/22 15:40: B-Natriuretic Peptide 682.6 H Micro: Microbiology 07/18/22 17:15 Nasal Secretion SARS-CoV-2 & FLU Antigen (Rapid) - Final Radiology Impression Chest X-Ray 07/18/22 16:20 IMPRESSION: Right basilar infiltrate. Mild cardiomegaly with interstitial edema and moderate right pleural effusion. Electronically Signed: Levar Cid MD at 16:58 EST , Assessment & Plan Assessment/Plan (1) Atrial fibrillation with rapid ventricular response: PLAN: Plan 1. Chronic atrial fibrillation with rapid ventricular response-patient will be placed into stepdown on PCU, IV Cardizem will be started if the patient can tolerate this with his systolic blood pressure, if not the patient will need to be placed on IV amiodarone. Echocardiogram will be obtained. Patient is also on a beta-marcela, this will be continued. #2 right lower lobe infiltrate-possibly community-acquired pneumonia-patient will be maintained on IV Rocephin and Zithromax, he received 1 dose of Levaquin in the emergency room. Chest x-ray will be repeated tomorrow, urine antigens for strep and Legionella were obtained. Patient has no symptoms of pneumonia such as a productive cough, chills, or fever. #3 coronary artery disease-patient states 3 years ago he had a coronary artery bypass performed, he will remain on his present medications #4 hypercoagulable state due to chronic atrial fib-patient takes Eliquis at home, I will increase his dosage to 5 mg twice daily #5 elevated creatinine-patient may have chronic kidney disease, labs will be monitored #6 elevated beta natruretic peptide-I am unsure at this time if the patient is actually and congestive heart failure, chest x-ray does not show signs of congestive heart failure at this time although he does have what appears to be a right pleural effusion. I will not place the patient on Lasix at this time due to low blood pressure, he will be hep-locked and repeat chest x-ray will be performed in the morning. #7 noncompliance with medical regimen-complicates care, management, recovery, and prognosis #8 BPH-patient states he has a problem with urinary retention, he takes saw palmetto at home, I recommended that we place him on Flomax and he has agreed to take it. #9 hyperlipidemia-patient is on atorvastatin, he will remain on this in the hospital Total clinical time spent by myself addressing the patient's medical issues, reviewing the data, and collaborating with patient's care team: 80 minutes Charges/Coding Visit Charges Inpatient E&M: 04145 Init Hosp L3
--- NOTE | 2022-07-18 19:16 | ED.RN ---
Nurse into start cardizm drip. bp 88/62. New order Dr. East 500cc Normal Saline and start cardizem when bp goes above 90sys. BP recheck 101/82. Per Kita go ahead with Cardizem. BP recheck 87/74. New order to continue Cardizem and do another 500ml bolus.
--- NOTE | 2022-07-18 19:34 | ECHOD_ITS ---
Reason For Study: AFIB Procedure This was a 2D Doppler, Color Flow transthoracic echocardiogram. Exam performed portable in ICU/CCU. Left Ventricle Normal LV size. Moderate concentric left ventricular hypertrophy. Left ventricular systolic function is lower limits of normal. The estimated ejection fraction is 50 %. There is borderline global hypokinesis of the left ventricle. Right Ventricle Mildly dilated right ventricle. Mild to moderate global right ventricular systolic dysfunction. Atria The left atrium is mildly enlarged. The right atrium is mildly enlarged. Mitral Valve There is moderate mitral annular calcification. Moderate (2+) eccentric mitral valve insufficiency. Tricuspid Valve Normal tricuspid valve. Mild to moderate (1-2+) tricuspid valve insufficiency. Pulmonary artery systolic pressure is 50 mmHg. Aortic Valve Peak aortic valve gradient 16 mmHg. Mean aortic valve gradient 9 mmHg. Bioprosthetic aortic valve. Pulmonic Valve Normal pulmonic valve. Great Vessels Normal aortic root. The pulmonary artery is normal size. Normal inferior vena cava. Pericardium/Pleural No pericardial effusion. MMode/2D Measurements & Calculations LVIDd: 4.2 cm IVSd: 1.6 cm LVOT diam: 2.0 cm LVIDs: 3.3 cm LVPWd: 1.5 cm LVOT area: 3.0 cm2 RVDd: 3.8 cm FS: 20.6 % Ao root diam: 3.4 cm LAV(MOD-sp4): 71.5 ml LVAd ap4: 29.0 cm2 LVLd ap4: 7.9 cm EDV(MOD-sp4): 88.0 ml EDV(sp4-el): 90.4 ml LVAs ap4: 19.1 cm2 LVLs ap4: 7.4 cm ESV(MOD-sp4): 40.5 ml ESV(sp4-el): 41.7 ml EF(MOD-sp4): 54.0 % EF(sp4-el): 53.8 % SV(MOD-sp4): 47.5 ml SV(sp4-el): 48.7 ml LA A4 area: 23.2 cm2 LA dimension(2D): 4.6 cm RA A4 area: 24.2 cm2 Doppler Measurements & Calculations MV E max brando: 102.7 cm/sec MV V2 max: 107.1 cm/sec Ao V2 max: 197.6 cm/sec MV max P.6 mmHg Ao max P.6 mmHg MV V2 mean: 58.9 cm/sec Ao V2 mean: 136.5 cm/sec MV mean P.6 mmHg Ao mean P.8 mmHg MV V2 VTI: 35.2 cm Ao V2 VTI: 41.5 cm AV (velocity ratio): 0.38 MVA(VTI): 1.4 cm2 ASHA(I,D): 1.1 cm2 ASHA(V,D): 1.1 cm2 LV V1 max: 71.9 cm/sec MR max brando: 448.9 cm/sec SV(LVOT): 47.6 ml LV V1 max P.1 mmHg MR max P.6 mmHg LV V1 mean P.2 mmHg MR mean brando: 334.5 cm/sec LV V1 mean: 51.2 cm/sec MR mean P.0 mmHg LV V1 VTI: 15.7 cm MR VTI: 134.7 cm TR max brando: 338.7 cm/sec TR max P.9 mmHg ECHO/Echo Complete Interpretation Summary Normal LV size. Moderate concentric left ventricular hypertrophy. Left ventricular systolic function is lower limits of normal. The estimated ejection fraction is 50 %. There is borderline global hypokinesis of the left ventricle. The left atrium is mildly enlarged. Moderate (2+) eccentric mitral valve insufficiency. Mild to moderate (1-2+) tricuspid valve insufficiency. Bioprosthetic aortic valve. Ordering Physician: Luis Felipe Abdul Referring Physician: Rayo Allred M.D. Performed By: Bailee Felix RCS
[2022-07-18] MEDS: Tamsulosin HCl 0.4 MG Capsule PO (20:03)
[2022-07-18] MEDS: APIXABAN 5 MG TABLET PO (20:03)
[2022-07-18] MEDS: Atorvastatin Calcium 80 MG Tablet PO (20:03)
[2022-07-19] VITALS (44 sets, daily range): BP systolic 64–118; BP diastolic 46–82; PULSE 73–160; RESP 17–29; TEMP 36.3–36.6; O2SAT 91–98
[2022-07-19 03:58] LABS: Basophil# 0.02 X10^3/uL; Basophil% 0.2 % (0-1); Hematocrit 43.7 % (40-54); Lymphocyte % 12.4 % (19-41); Mean Corpuscular Hgb 27.9 pg (27.0-32.0); Mean Corpuscular Volume 87.2 fL (80-94); Mean Platelet Vol. 11.1 fl (6.2-12.0); Monocyte# 1.04 X10^3/uL; Monocyte% 9.9 % (0-10); NRBC Flagged by Analyzer 0 % (0-5); Neutrophil # 7.99 X10^3/uL (2.7-7.7); Neutrophil % 76.1 % (47-70); Platelet Count 173 K/mm3 (150-450); RBC Distribution Width SD 47.3 fl (35.1-43.9); Red Blood Count 5.01 M/mm3 (4.6-6.2); White Blood Count 10.5 K/mm3 (4.4-11.0)
[2022-07-19 04:12] LABS: Anion Gap 5 (5-15); BUN 44 mg/dL (7-18); BUN/Creat Ratio 25.7 RATIO (10-20); Calcium,Total 8.2 mg/dL (8.5-10.1); Chloride 105 mmol/L (98-107); Creatinine, Serum 1.71 mg/dL (0.70-1.30); EST Glomerular Filtration Rate 41 mL/min (>60); Est Glom Filt Rate - Afr Amer 50 mL/min (>60); Estimated Creatinine Clearance 36.76 ml/min; Glucose 117 mg/dL (74-106); Potassium 4.7 mmol/L (3.5-5.1); Sodium Level 137 mmol/L (136-145)
--- NOTE | 2022-07-19 05:55 | RAD_ITS ---
STUDY: X-RAY CHEST REASON FOR EXAM: Male, 77 years old. Pneumonia TECHNIQUE: Single AP portable view of the chest. COMPARISON: Comparison is made with prior study dated 07/18/2022. FINDINGS: EKG electrodes are seen. Increasing small right pleural effusion with right basilar infiltration. Progressive infiltrate in the posterior medial segment of the left lower lobe. Sternal cerclage wires are present from a prior sternotomy. Prior mitral valve replacement. Normal mediastinum and jamil. Normal visualized pulmonary arteries. There is atherosclerotic tortuosity of the aortic arch and descending thoracic aorta. There are diffuse degenerative changes of the visualized thoracic spine. Normal visualized ribs, clavicles, and shoulders. There is no demonstrated abnormality of the visualized soft tissue structures of the upper abdomen. RAD/Chest 1 View (Portable) IMPRESSION: Increasing right pleural effusion with right basilar infiltration. Progressive infiltrate in the posterior medial segment of the left lower lobe. Electronically Signed: Mervin Vora MD at 9:38 EST ,
--- NOTE | 2022-07-19 08:58 | PN.HOSP_ITS ---
Subjective Subjective No issues overnight, rate is now controlled and he does not appear to be in A. fib Objective Data Objective Data Vital Signs: Vital Signs Temp Pulse Resp BP Pulse Ox O2 Del Method O2 Flow Rate 97.6 F L 77 24 H 87/60 L 93 Room Air 2 07/19/22 08:00 07/19/22 08:00 07/19/22 08:00 07/19/22 08:00 07/19/22 08:00 07/19/22 08:00 07/19/22 07:00 Oxygen Flow Rate (L/min) 2 Oxygen Delivery Method Room Air Weight: 230 lb 9.656 oz Body Mass Index (BMI) 33.0 Intake & Output: Intake and Output for Last 24 Hours 07/18/22 07/19/22 07/20/22 03:59 03:59 03:59 Intake Total 1660.17 / 1660.67 133.00 / 133.00 Balance 1660.17 / 1660.67 133.00 / 133.00 Lab / Micro Data Result Diagrams: 07/19/22 03:53 07/19/22 03:53 Labs: Laboratory Results - last 24 hr 07/18/22 15:40: WBC 10.7, RBC 5.61, Hgb 15.8, Hct 48.8, MCV 87.0, MCH 28.2, MCHC 32.4, RDW Std Deviation 47.7 H, RDW Coeff of David 15.1 H, Plt Count 221, MPV 11.3, Immature Gran % (Auto) 0.400, Neut % (Auto) 72.3 H, Lymph % (Auto) 15.6 L, [place] % (Auto) 11.0 H, Eos % (Auto) 0.4, Baso % (Auto) 0.3, Absolute Neuts (auto) 7.7, Absolute Lymphs (auto) 1.66, Nucleated RBC % 0 07/18/22 15:40: Sodium 135 L, Potassium 4.7, Chloride 102, Carbon Dioxide 29.0, Anion Gap 4 L, BUN 46 H, Creatinine 1.97 H, Estim Creat Clear Calc 31.91, Est GFR (MDRD) Af Amer 43 L, Est GFR (MDRD) Non-Af 35 L, BUN/Creatinine Ratio 23.4 H , Glucose 121 H, Calcium 9.2, Troponin I High Sens 45 07/18/22 15:40: B-Natriuretic Peptide 682.6 H 07/19/22 03:53: WBC 10.5, RBC 5.01, Hgb 14.0, Hct 43.7, MCV 87.2, MCH 27.9, MCHC 32.0, RDW Std Deviation 47.3 H, RDW Coeff of Davdi 15.0 H, Plt Count 173, MPV 11.1, Immature Gran % (Auto) 0.400, Neut % (Auto) 76.1 H, Lymph % (Auto) 12.4 L, [place] % (Auto) 9.9, Eos % (Auto) 1.0, Baso % (Auto) 0.2, Absolute Neuts (auto) 8.0 H, Absolute Lymphs (auto) 1.30, Nucleated RBC % 0 07/19/22 03:53: Sodium 137, Potassium 4.7, Chloride 105, Carbon Dioxide 27.0, Anion Gap 5, BUN 44 H, Creatinine 1.71 H, Estim Creat Clear Calc 36.76, Est GFR (MDRD) Af Amer 50 L, Est GFR (MDRD) Non-Af 41 L, BUN/Creatinine Ratio 25.7 H, Glucose 117 H, Calcium 8.2 L Micro: Microbiology 07/18/22 17:15 Nasal Secretion SARS-CoV-2 & FLU Antigen (Rapid) - Final Radiography Diagnostic Testing: Radiology Impression Chest X-Ray 07/18/22 16:20 IMPRESSION: Right basilar infiltrate. Mild cardiomegaly with interstitial edema and moderate right pleural effusion. Electronically Signed: Levar Cid MD at 16:58 EST , Physical Exam Narrative General: Alert, Oriented x3, Cooperative, No apparent distress HEENT: Atraumatic, PERRLA, EOMI, Normocephalic Oral: Moist Mucosa Neck: Supple, No JVD Lungs: Diminished, Normal air movement, No rhonchi, No wheeze, No rales Cardiovascular: Regular rate, Regular Rhythm, Normal S1, Normal S2, No murmurs Abdomen: Soft, Non Tender, Non-Distended, No Hepato-splenomegaly Extremities: No edema, Capillary Refill Less than 3 Seconds Skin: No rashes, No breakdown Musculoskeletal: No Tenderness to Palpation of Joints or Extremities Neurological: Cranial nerves II-XII grossly intact, Motor Exam 5/5 strength throughout, Sensory exam intact to light touch and pain Psych/Mental Status: Normal Affect, Appropriate Assessment & Plan Assessment/Plan (1) Atrial fibrillation with rapid ventricular response: PLAN: Plan 1. Chronic A. fib with RVR/CAD status post CABG/HTN/HLD ? There is some concern about compliance issues and while he is oriented there has been some odd behaviors that would be consistent with dementia ? Blood pressures are on the softer side with his Cardizem drip, since he does not appear to be tachycardic or in A. fib will discontinue his Cardizem and see if his blood pressure responds, he is on Toprol-XL at 100 mg so we will continue this medication and if necessary could increase ? Continue with his Lipitor and his Eliquis ?Echo pending for today 2. Right lower lobe community-acquired pneumonia/MARTY ? We will monitor his renal function ? Continue with his Rocephin and azithromycin 3. BPH ? Stable ? Start him on Flomax DVT: Eliquis Charges/Coding Visit Charges Inpatient E&M: 73318 Subs Hosp L2
[2022-07-19] MEDS: Ceftriaxone 1 GM/50 ML BAG IV (10:31)
[2022-07-19] MEDS: APIXABAN 5 MG TABLET PO ×2 (10:33→21:48)
[2022-07-19] MEDS: 0.9% Saline Lock 10 ML Syringe IV (11:07)
[2022-07-19] MEDS: guaiFENesin 10 ML UDC (200MG/10ML) PO (12:38)
[2022-07-19] MEDS: 0.9% Normal Saline 1,000 ML 100 ML IV (12:38)
--- NOTE | 2022-07-19 13:41 | EX.PCM.CONCC ---
Assessment & Plan Assessment/Plan (1) Atrial fibrillation with rapid ventricular response: (2) CHF (congestive heart failure): PLAN: Plan RECOMMENDATIONS: 1. Discontinue Cardizem 2. Consider Lopressor at half baseline dose 3. Hold on pressors for now 4. Continue anticoagulation with 10 a inhibitor 5. Check orthostatics 6. Consider echocardiogram IMPRESSIONS: 1. A. fib with RVR/CAD status post CABG/hypertension/hyperlipidemia Patient appears to be doing well at this time. Patient was on Cardizem and has gone back to normal sinus rhythm. This may have led to the transient hypotension. Hold on p.o. medications for now. Likely reinitiate medications at half dose tomorrow if patient remains hemodynamically stable. Okay to continue statin for my perspective. 2. Hypotension Clinical suspicion for hypotension secondary to Cardizem drip. Patient is currently in sinus rhythm. We will hold off on pressors at this time. Would recommend using caution with fluid boluses as this could lead to congestive heart failure 3. Right lower lobe infiltrate Low clinical suspicion for pneumonia at this time with lack of fever, leukocytosis and productive cough. However, it is reasonable to treat with antibiotics for 48 hours pending culture data. If patient is not having any fevers or leukocytosis in the next 24 to 48 hours this can likely be discontinued. Congestive heart failure would be a concern, but should be improved with better rate control. 4. Possible acute kidney injury Patient's creatinine is significantly elevated above 2020 values. Interim data is not available. We will continue hemodynamic support and monitor renal function. There is no indication for renal replacement therapy at this time. 5. BPH/advanced age/poor historian/obesity/PAOLA Complicates care, management, recovery and prognosis. Patient is on Flomax. This may be exacerbating hypotension. Could check orthostatics. Attempt to clarify information with daughter when available. HPI Consult Data Date of Consult: 07/19/22 HPI Narrative HPI Narrative: JORGE ORDOÑEZ is a 77 M, with past medical history listed below, who presents to [facility] 07/18/2022 secondary to being short of breath for the past few weeks. Patient was seen by his PCP on July 10 and diagnosed with SVT. Patient reportedly was supposed to follow-up with cardiology or present to the emergency department. Patient declined and then had come back to his primary care complaining of continued shortness of breath. Patient was once again found to be in SVT and transported to the ER for evaluation. Patient does report chronic lower extremity edema, but did not feel this was significantly worse. Patient is chronically anticoagulated with Eliquis. In the ER, patient was afebrile, but tachycardic at 160 bpm. Patient was found to be in A. fib with RVR. Patient was normotensive at that time. Laboratory data showed a white blood cell count of 10.7, hemoglobin of 15.8 and platelets of 221. Chemistries showed a bicarbonate of 29, BUN of 46 and creatinine 1.97. BNP was elevated at 682 and chest x-ray was suggestive of right basilar infiltrate with associated effusion. Patient was given Levaquin forconcern COVID testing was negative. Patient was initially tried on Lopressor IV, but ultimately had to be placed on a Cardizem drip. This was transiently held secondary to hypotension that did respond to a 500 cc bolus. Patient was admitted to stepdown for further evaluation. Since being admitted to the hospital, patient has done relatively well. Patient has not required supplemental oxygen. However, patient started to have dizziness. Cardizem drip was held and patient was found to be hypotensive. Cardiology has not evaluated the patient, but there was concerned that pressors would be required, so I was asked to see the patient. Patient has subsequently converted to sinus rhythm. Patient is a relatively poor historian. Patient denies any history of respiratory complications. Patient did smoke in the past, but does not carry any diagnosis of COPD or asthma. Patient does not report a history of pneumonia. Patient has not had any bleeding complications. Patient is unaware if he is ever had a cardioversion. Patient does carry a diagnosis of obstructive sleep apnea. Patient does report a history of an allergy to amiodarone, but is unaware of the reaction. [facility] Medical History Atrial fibrillation Coronary artery disease GERD (gastroesophageal reflux disease) Hypertension Sleep apnea Home Medications apixaban 2.5 mg tablet (Eliquis) 2.5 mg PO BID AFIB 07/18/22 [History Last Taken 07/18/22] atorvastatin 80 mg tablet 80 mg PO DAILY CHOLESTEROL 07/18/22 [History Last Taken 07/18/22] magnesium 250 mg tablet 250 mg PO DAILY SUPPLEMENT 07/18/22 [History Last Taken 07/18/22] metoprolol succinate 100 mg tablet,extended release 24 hr 100 mg PO DAILY HEART 07/18/22 [History Last Taken 07/18/22] gwvepdmz-ceujyqgo-pwide acid 400 mcg-vit K 20 mcg-lycop 300 mcg tablet (One-A-Day Men's Multivitamin) 1 tab PO DAILY SUPPLEMENT 07/18/22 [History Last Taken 07/18/22] potassium gluconate 550 mg (90 mg) tablet 550 mg PO DAILY SUPPLEMENT 07/18/22 [History Last Taken 07/18/22] saw palmetto 450 mg capsule 450 mg PO DAILY SUPPLEMENT 07/18/22 [History Last Taken 07/18/22] Allergy/AdvReac Type Severity Reaction Status Date / Time Penicillins Allergy Other Verified 07/18/22 15:06 shellfish derived Allergy Vomiting Verified 07/18/22 15:06 amiodarone AdvReac Rash Verified 07/18/22 15:06 Surgical History Hx of CABG Social History Smoking Status: Former smoker ROS ROS Narrative Poor historian limits ability to obtain review of systems Physical Exam Const alert and oriented x3 Constitutional Narrative: No conversational dyspnea. Lying flat. Slightly pale General Appearance: cooperative and well developed HEENT normocephalic, head/scalp atraumatic and moist oral mucous membranes Eyes PERRL, EOMs intact bilaterally and conjunctivae normal Neck full ROM and no lymphadenopathy Chest inspection of chest normal Resp normal respiratory effort and no use of accessory muscles Effort and Inspection: able to speak in complete sentences Auscultation: clear to auscultation bilaterally; Negative for rales, rhonchi or wheezes Percussion: Negative for dullness Cardio regular rate, regular rhythm, S1 normal heart sound, S2 normal heart sound, no murmurs, no rub and no gallops Cardio Narrative: Sinus rhythm noted on telemetry GI normal to inspection, nondistended, normoactive bowel sounds no CVA tenderness Extremity General Extremity: edema bilateral (2+ bilateral) lower extremity; Negative for clubbing Skin no rashes or lesions noted Neuro oriented x3, CN's II-XII intact bilaterally, moves all extremities and no focal motor deficits Psych Activity / Motor Behavior: restless Mood & Affect: anxious Lab / Micro Data Attestation: I reviewed the patient's lab results. Lab results narrative: Baseline creatinine appears to be approximately 1 in 2019, but there is no test results in the interim. Result Diagrams: 07/19/22 03:53 07/19/22 03:53 Labs: Laboratory Results - last 24 hr 07/18/22 15:40: WBC 10.7, RBC 5.61, Hgb 15.8, Hct 48.8, MCV 87.0, MCH 28.2, MCHC 32.4, RDW Std Deviation 47.7 H, RDW Coeff of David 15.1 H, Plt Count 221, MPV 11.3, Immature Gran % (Auto) 0.400, Neut % (Auto) 72.3 H, Lymph % (Auto) 15.6 L, [place] % (Auto) 11.0 H, Eos % (Auto) 0.4, Baso % (Auto) 0.3, Absolute Neuts (auto) 7.7, Absolute Lymphs (auto) 1.66, Nucleated RBC % 0 07/18/22 15:40: Sodium 135 L, Potassium 4.7, Chloride 102, Carbon Dioxide 29.0, Anion Gap 4 L, BUN 46 H, Creatinine 1.97 H, Estim Creat Clear Calc 31.91, Est GFR (MDRD) Af Amer 43 L, Est GFR (MDRD) Non-Af 35 L, BUN/Creatinine Ratio 23.4 H, Glucose 121 H, Calcium 9.2, Troponin I High Sens 45 07/18/22 15:40: B-Natriuretic Peptide 682.6 H 07/19/22 03:53: WBC 10.5, RBC 5.01, Hgb 14.0, Hct 43.7, MCV 87.2, MCH 27.9, MCHC 32.0, RDW Std Deviation 47.3 H, RDW Coeff of David 15.0 H, Plt Count 173, MPV 11.1, Immature Gran % (Auto) 0.400, Neut % (Auto) 76.1 H, Lymph % (Auto) 12.4 L, [place] % (Auto) 9.9, Eos % (Auto) 1.0, Baso % (Auto) 0.2, Absolute Neuts (auto) 8.0 H, Absolute Lymphs (auto) 1.30, Nucleated RBC % 0 07/19/22 03:53: Sodium 137, Potassium 4.7, Chloride 105, Carbon Dioxide 27.0, Anion Gap 5, BUN 44 H, Creatinine 1.71 H, Estim Creat Clear Calc 36.76, Est GFR (MDRD) Af Amer 50 L, Est GFR (MDRD) Non-Af 41 L, BUN/Creatinine Ratio 25.7 H, Glucose 117 H, Calcium 8.2 L Micro: Microbiology 07/18/22 17:15 Nasal Secretion SARS-CoV-2 & FLU Antigen (Rapid) - Final Rhythm Strip Rhythm Strip: Sinus Rhythm Rate: 68 Radiology Impression Chest X-Ray 07/18/22 16:20 IMPRESSION: Right basilar infiltrate. Mild cardiomegaly with interstitial edema and moderate right pleural effusion. Electronically Signed: Levar Cid MD at 16:58 EST , Chest X-Ray 07/19/22 05:55 IMPRESSION: Increasing right pleural effusion with right basilar infiltration. Progressive infiltrate in the posterior medial segment of the left lower lobe. Electronically Signed: Mervin Vora MD at 9:38 EST , Charges/Coding Visit Charges Inpatient E&M: 96318 Init Hosp L3
--- NOTE | 2022-07-19 14:00 | CASEMGMT ---
RN [employer] CM to room to meet with patient for initial transition planning/care coordination assessment. EMILY CUEVA introduced self and role at [facility]. Pt voices understanding and consents to assessment at this time. Pt resting in bed in no distress at this time. Pt is A/O at this time and answers all questions appropriately. Care providers, pharmacy, and demographics verified/updated at this time. PCP: Dr Allred Specialists: Dr Earnest Pierre-coring machine operator @ [facility] Preferred Pharmacy: [facility] Insurance: MMO primary (pt states thru his 's job), AARP [facility] Prescription Benefit: yes Living Will/HPOA: Pt does not currently have LW/HCPOA. Pt states he and his have been approx 2 years and are currently going thru a divorce. He was made aware until divorce is finalized that would be healthcare decision maker if he were unable to make decisions, unless he completes HCPOA. Pt states he would not want her to be his decision maker. He states he most likely would have his oldest daughter, Tiara Romano, be primary POA and his first , Sonia, or another daughter, be 1st alternative. He states would like to complete AD while @ [facility], if able, but he wishes to speak w/his dtr, Tiara Romano, about it first. Kristy CASTILLO, made aware. LNOK: , Na (currently and going through a divorce), 3 children from his 1st marriage, and has one adopted child from his 2nd marriage. Oldest daughter is Tiara Dowling. Living Arrangements: Lives alone in 2-story home w/2 steps to enter. FFSU. States he is independent w/ADL's and IADL's. He states he manages his own medications and appts, although he states managing his meds isn't real easy d/t the changes. Transportation: Pt states drives self and states no transportation concerns at this time. Pt states he drove himself to [facility] and plans to drive home @ d/c, if able to. DME: Pt has a lift chair and a CPAP he got from [facility], although he states he has not used it in about 2 years. He has a cane available, but does not use it. He denies having any DME needs. HHC/SNF: No hx of either. Denies need for HHC. Discussed CCN for medication management/education. He declines at this time stating I don't think I need that yet. Pt was provided w/CCN rac card w/contact info if he changes his mind once he returns home. He voices appreciation. Pt wishes to return home and states has no concerns with going home at time of discharge. CM to follow for any further discharge planning/needs. Pt voices no further concerns/needs at this time. Advised pt to ask for CM if any further questions/concerns/needs arise. Voices understanding. PLAN: Home Hector BHAGAT RN CM
[2022-07-19 18:17] LABS: Thyroid Stim Hormone (TSH) 3.47 uIU/mL (0.358-3.74)
[2022-07-19] MEDS: Metoprolol Tartrate 5 MG/5 ML Vial IV ×2 (18:44→23:59)
[2022-07-19] MEDS: Tamsulosin HCl 0.4 MG Capsule PO (21:48)
[2022-07-19] MEDS: Atorvastatin Calcium 80 MG Tablet PO (21:48)
[2022-07-19] MEDS: Menthol/Lanolin/Calamine/Znox 113 GM Tube 1 APPLIC TOPICAL (23:34)
[2022-07-19] MEDS: Nystatin Powder 15gm Bottle 1 APPLIC TOPICAL (23:34)
[2022-07-19] MEDS: Metoprolol(XL)Succ 100 MG Tablet PO (23:50)
[2022-07-20] VITALS (17 sets, daily range): BP systolic 87–123; BP diastolic 60–101; PULSE 89–164; RESP 15–24; TEMP 36.4–37.2; O2SAT 93–98
[2022-07-20] MEDS: 0.9% Normal Saline 1,000 ML 100 ML IV ×3 (02:01→21:28)
[2022-07-20] MEDS: Metoprolol Tartrate 5 MG/5 ML Vial IV (02:01)
[2022-07-20] MEDS: 0.9% Normal Saline 1,000 ML 999 ML IV (02:43)
[2022-07-20] MEDS: Digoxin 250 MCG/ML Ampul 500 MCG IV (02:45)
[2022-07-20] MEDS: 0.9% Saline Lock 10 ML Syringe IV (02:51)
[2022-07-20 03:41] LABS: Absolute Lymphocyte Count 1.08 X10^3/uL (0.83-4.51); Absolute Neutrophil Count 6.9 X10^3/uL (2.0-7.7); Basophil# 0.02 X10^3/uL; Basophil% 0.2 % (0-1); Eosinophil# 0.12 X10^3/uL; Eosinophils% 1.3 % (0-5); Hematocrit 41.8 % (40-54); Hemoglobin 13.6 g/dL (13.0-16.5); Lymphocyte # 1.08 X10^3/ul (0.83-4.51); Lymphocyte % 11.9 % (19-41); Mean Corp Hgb Conc 32.5 g/dL (32-36); Mean Corpuscular Volume 86.2 fL (80-94); Mean Platelet Vol. 10.3 fl (6.2-12.0); Monocyte# 0.88 X10^3/uL; Monocyte% 9.7 % (0-10); NRBC Flagged by Analyzer 0 % (0-5); Neutrophil # 6.93 X10^3/uL (2.7-7.7); Neutrophil % 76.6 % (47-70); Platelet Count 144 K/mm3 (150-450); RBC Distribution Width CV 14.9 % (11.6-14.6); Red Blood Count 4.85 M/mm3 (4.6-6.2); White Blood Count 9.1 K/mm3 (4.4-11.0)
[2022-07-20 04:14] LABS: Anion Gap 8 (5-15); BUN 35 mg/dL (7-18); BUN/Creat Ratio 25.5 RATIO (10-20); Calcium,Total 7.8 mg/dL (8.5-10.1); Chloride 109 mmol/L (98-107); Creatinine, Serum 1.37 mg/dL (0.70-1.30); EST Glomerular Filtration Rate 53 mL/min (>60); Est Glom Filt Rate - Afr Amer 65 mL/min (>60); Estimated Creatinine Clearance 45.88 ml/min; Glucose 117 mg/dL (74-106); Potassium 4.3 mmol/L (3.5-5.1); Sodium Level 139 mmol/L (136-145)
[2022-07-20] MEDS: Nystatin Powder 15gm Bottle 1 APPLIC TOPICAL ×3 (05:50→22:07)
--- NOTE | 2022-07-20 06:55 | PCM.PN.INT ---
Assessment & Plan Assessment/Plan (1) Atrial fibrillation with rapid ventricular response: (2) CHF (congestive heart failure): PLAN: Plan RECOMMENDATIONS: 1. Consult cardiology 2. Okay to continue digoxin 3. Hold on pressors for now 4. Continue anticoagulation with 10 a inhibitor 5. Potential transition to PCU status if rate control can be achieved without hypotension 6. Consider echocardiogram IMPRESSIONS: 1. A. fib with RVR/CAD status post CABG/hypertension/hyperlipidemia Patient appears to be doing well at this time. Cardizem has been difficult secondary to hypotension. Beta-blockers have not been effective. Unfortunately, amiodarone appears to cause rash and requires Benadryl making this a poor long-term solution. Unclear if patient would be a candidate for sotalol, flecainide or possible EP study. We will consult cardiology for recommendations 2. Hypotension Clinical suspicion for hypotension secondary to medications. Patient is currently in A. fib again. We will hold off on pressors at this time. Would recommend using caution with fluid boluses as this could lead to congestive heart failure 3. Right lower lobe infiltrate Low clinical suspicion for pneumonia at this time with lack of fever, leukocytosis and productive cough. However, it is reasonable to treat with antibiotics for 48 hours pending culture data. If patient is not having any fevers or leukocytosis in the next 24 this can likely be discontinued. Congestive heart failure would be a concern, but should be improved with better rate control. 4. Possible acute kidney injury Slightly improving. Patient's creatinine is significantly elevated above 2020 values. Interim data is not available. We will continue hemodynamic support and monitor renal function. There is no indication for renal replacement therapy at this time. 5. BPH/advanced age/poor historian/obesity/PAOLA Complicates care, management, recovery and prognosis. Patient is on Flomax. This may be exacerbating hypotension. Could check orthostatics. Subjective Subjective Patient did okay from a respiratory standpoint over the last 24 hours. However, patient did have A. fib with RVR again overnight. Attempts at using Lopressor were unsuccessful. Patient was given digoxin with some improvement in heart rate. On discussion this morning, patient was informed that cardiology would be consulted and then offered that he has been on sotalol in the past. Patient's daughter is stated that he has tolerated amiodarone in the past, but this typically requires Benadryl to avoid complications. Objective Data Objective Data Vital Signs: Vital Signs Temp Pulse Resp BP Pulse Ox O2 Del Method O2 Flow Rate 36.7 C 117 H 18 87/60 L 93 Room Air 2 07/20/22 04:00 07/20/22 06:00 07/20/22 06:00 07/20/22 06:00 07/20/22 06:00 07/20/22 06:00 07/20/22 00:00 Oxygen Flow Rate (L/min) 2 Oxygen Delivery Method Room Air Weight: 104.6 kg Body Mass Index (BMI) 33.0 Intake & Output: Intake and Output for Last 24 Hours 07/18/22 07/19/22 07/20/22 23:59 23:59 23:59 Intake Total 1200.67 / 1615.67 1898.00 / 2098.00 1200 / 1200 Balance 1200.67 / 1615.67 1898.00 / 2098.00 1200 / 1200 Lab / Micro Data Attestation: I reviewed the patient's lab results. Result Diagrams: 07/20/22 03:30 07/20/22 03:30 Labs: Laboratory Results - last 24 hr 07/19/22 17:40: TSH 3.47 07/20/22 03:30: WBC 9.1, RBC 4.85, Hgb 13.6, Hct 41.8, MCV 86.2, MCH 28.0, MCHC 32.5, RDW Std Deviation 47.0 H, RDW Coeff of David 14.9 H, Plt Count 144 L, MPV 10.3, Immature Gran % (Auto) 0.300, Neut % (Auto) 76.6 H, Lymph % (Auto) 11.9 L, [place] % (Auto) 9.7, Eos % (Auto) 1.3, Baso % (Auto) 0.2, Absolute Neuts (auto) 6.9, Absolute Lymphs (auto) 1.08, Nucleated RBC % 0 07/20/22 03:30: Sodium 139, Potassium 4.3, Chloride 109 H, Carbon Dioxide 22.0, Anion Gap 8, BUN 35 H, Creatinine 1.37 H, Estim Creat Clear Calc 45.88, Est GFR (MDRD) Af Amer 65, Est GFR (MDRD) Non-Af 53 L, BUN/Creatinine Ratio 25.5 H, Glucose 117 H, Calcium 7.8 L Micro: Microbiology 07/18/22 17:15 Nasal Secretion SARS-CoV-2 & FLU Antigen (Rapid) - Final Radiography Diagnostic Testing: Radiology Impression Echocardiogram 07/18/22 19:34 Interpretation Summary Normal LV size. Moderate concentric left ventricular hypertrophy. Left ventricular systolic function is lower limits of normal. The estimated ejection fraction is 50 %. There is borderline global hypokinesis of the left ventricle. The left atrium is mildly enlarged. Moderate (2+) eccentric mitral valve insufficiency. Mild to moderate (1-2+) tricuspid valve insufficiency. Bioprosthetic aortic valve. Ordering Physician: Luis Felipe Abdul Referring Physician: Rayo Allred M.D. Performed By: Bailee Felix RCS Chest X-Ray 07/19/22 05:55 IMPRESSION: Increasing right pleural effusion with right basilar infiltration. Progressive infiltrate in the posterior medial segment of the left lower lobe. Electronically Signed: Mervin Vora MD at 9:38 EST Reading Location ID and State: [address] [place] [address] , Service support , Rhythm Strip Rhythm Strip: Sinus Rhythm Rate: 68 Physical Exam Const alert and oriented x3 Constitutional Narrative: No conversational dyspnea. Lying flat. Slightly pale General Appearance: cooperative and well developed HEENT normocephalic, head/scalp atraumatic and moist oral mucous membranes Eyes PERRL, EOMs intact bilaterally and conjunctivae normal Neck full ROM and no lymphadenopathy Chest inspection of chest normal Resp normal respiratory effort and no use of accessory muscles Effort and Inspection: able to speak in complete sentences Auscultation: clear to auscultation bilaterally; Negative for rales, rhonchi or wheezes Percussion: Negative for dullness Cardio S1 normal heart sound, S2 normal heart sound, no murmurs, no rub and no gallops Cardio Narrative: A. fib with RVR noted on telemetry GI normal to inspection, nondistended, normoactive bowel sounds no CVA tenderness Extremity General Extremity: edema bilateral (2+ bilateral) lower extremity; Negative for clubbing Skin no rashes or lesions noted Neuro oriented x3, CN's II-XII intact bilaterally, moves all extremities and no focal motor deficits Psych cooperative and affect normal Charges/Coding Visit Charges Inpatient E&M: 55073 Subs Hosp L3
[2022-07-20] MEDS: Menthol/Lanolin/Calamine/Znox 113 GM Tube 1 APPLIC TOPICAL ×2 (08:07→22:06)
[2022-07-20] MEDS: APIXABAN 5 MG TABLET PO ×2 (08:07→22:06)
[2022-07-20] MEDS: Ceftriaxone 1 GM/50 ML BAG IV (08:08)
[2022-07-20] MEDS: Digoxin 250 MCG/ML Ampul IV ×2 (08:16→15:30)
--- NOTE | 2022-07-20 09:49 | PN.HOSP_ITS ---
Subjective Subjective Back into A. fib overnight, pressures did improve a little bit with fluids but started trending back down once had to be on intermittent Lopressor. Objective Data Objective Data Vital Signs: Vital Signs Temp Pulse Resp BP Pulse Ox O2 Del Method O2 Flow Rate 98.1 F 126 H 22 H 105/93 H 96 Room Air 2 07/20/22 04:00 07/20/22 08:16 07/20/22 08:00 07/20/22 08:16 07/20/22 08:00 07/20/22 08:00 07/20/22 07:15 Oxygen Flow Rate (L/min) 2 Oxygen Delivery Method Room Air Weight: 230 lb 9.656 oz Body Mass Index (BMI) 33.0 Intake & Output: Intake and Output for Last 24 Hours 07/19/22 07/20/22 07/21/22 03:59 03:59 03:59 Intake Total 1660.17 / 1660.67 2638.50 / 2638.50 0 / 0 Balance 1660.17 / 1660.67 2638.50 / 2638.50 0 / 0 Lab / Micro Data Result Diagrams: 07/20/22 03:30 07/20/22 03:30 Labs: Laboratory Results - last 24 hr 07/19/22 17:40: TSH 3.47 07/20/22 03:30: WBC 9.1, RBC 4.85, Hgb 13.6, Hct 41.8, MCV 86.2, MCH 28.0, MCHC 32.5, RDW Std Deviation 47.0 H, RDW Coeff of David 14.9 H, Plt Count 144 L, MPV 10.3, Immature Gran % (Auto) 0.300, Neut % (Auto) 76.6 H, Lymph % (Auto) 11.9 L, Alfalfa % (Auto) 9.7, Eos % (Auto) 1.3, Baso % (Auto) 0.2, Absolute Neuts (auto) 6.9, Absolute Lymphs (auto) 1.08, Nucleated RBC % 0 07/20/22 03:30: Sodium 139, Potassium 4.3, Chloride 109 H, Carbon Dioxide 22.0, Anion Gap 8, BUN 35 H, Creatinine 1.37 H, Estim Creat Clear Calc 45.88, Est GFR (MDRD) Af Amer 65, Est GFR (MDRD) Non-Af 53 L, BUN/Creatinine Ratio 25.5 H, Glucose 117 H, Calcium 7.8 L Micro: Microbiology 07/18/22 17:15 Nasal Secretion SARS-CoV-2 & FLU Antigen (Rapid) - Final Radiography Diagnostic Testing: Radiology Impression Echocardiogram 07/18/22 19:34 Interpretation Summary Normal LV size. Moderate concentric left ventricular hypertrophy. Left ventricular systolic function is lower limits of normal. The estimated ejection fraction is 50 %. There is borderline global hypokinesis of the left ventricle. The left atrium is mildly enlarged. Moderate (2+) eccentric mitral valve insufficiency. Mild to moderate (1-2+) tricuspid valve insufficiency. Bioprosthetic aortic valve. Ordering Physician: Luis Felipe Abdul Referring Physician: Rayo Allred M.D. Performed By: Bailee Felix RCS Rhythm Strip Rhythm Strip: Sinus Rhythm Rate: 68 Physical Exam Narrative General: Alert, Oriented x3, Cooperative, No apparent distress HEENT: Atraumatic, PERRLA, EOMI, Normocephalic Oral: Moist Mucosa Neck: Supple, No JVD Lungs: Diminished, Normal air movement, No rhonchi, No wheeze, No rales Cardiovascular: Regular rate and rhythm, Normal S1, Normal S2, No murmurs Abdomen: Soft, Non Tender, Non-Distended, No Hepato-splenomegaly Extremities: No edema, Capillary Refill Less than 3 Seconds Skin: No rashes, No breakdown Musculoskeletal: No Tenderness to Palpation of Joints or Extremities Neurological: Cranial nerves II-XII grossly intact, Motor Exam 5/5 strength throughout, Sensory exam intact to light touch and pain Psych/Mental Status: Normal Affect, Appropriate Assessment & Plan Assessment/Plan (1) Atrial fibrillation with rapid ventricular response: PLAN: Plan 1. Chronic A. fib with RVR/CAD status post CABG/HTN/HLD ? There is some concern about compliance issues and while he is oriented there has been some odd behaviors that would be consistent with dementia ? We will consult cardiology secondary to his recurrent A. fib and his inability to tolerate Cardizem or beta-blockers because his pressures will drop. He was given a dose of digoxin overnight and he states that he may have been on sotalol in the past ? Continue with his Lipitor ? Echo with an EF of 50% and borderline global hypokinesis of the left ventricle ? Continue with Eliquis for his bioprosthetic aortic valve as well as his A. fib 2. Right lower lobe community-acquired pneumonia/MARTY ? We will monitor his renal function ? Continue with his Rocephin and azithromycin 3. BPH ? Stable ? Start him on Flomax DVT: Eliquis Charges/Coding Visit Charges Inpatient E&M: 75188 Subs Hosp L2
--- NOTE | 2022-07-20 11:37 | PCM.CONS.C ---
Assessment & Plan Assessment/Plan (1) Atrial fibrillation with rapid ventricular response: PLAN: He does have atrial fibrillation with a rapid ventricular response rate. He appears to be doing better at this time. I would recommend that we continue him on the beta-marcela but with short acting beta-marcela with Lopressor 25 mg twice a day. I am hesitant to continue the digoxin due to his renal dysfunction. We will continue to monitor him. Depending on the findings further recommendations will be made. (2) Hypertension: PLAN: His blood pressure appears to be under fair control at this time I would not recommend that we make any changes. (3) CHF (congestive heart failure): PLAN: He does have evidence of heart failure with borderline ejection fraction. We will continue with cautious diuresis. HPI Consult Data Date of Consult: 07/20/22 HPI Narrative HPI Narrative: JORGE ORDOÑEZ, is a 77 M who presents for evaluation of shortness of breath which appears to be on exertion. The patient had seen the primary physician and was asked to go to the emergency room earlier this year but it does not appear that he had pursued to this. He does have a history of atrial fibrillation in the past, and coronary artery bypass graft surgery. The patient was seen in the emergency room and was noted to be hypotensive and was treated with intravenous fluids and was also noted to have an elevated creatinine and natruretic peptide. He was started on intravenous diltiazem and then subsequently transferred to the stepdown unit. He apparently has had significant allergy to amiodarone. During this admission he had an echocardiogram performed which demonstrated borderline ejection fraction of approximately 50%. He has also had some blood pressure perturbations. At this particular time his heart rate appears to be decent with a ventricular response rate of approximately 110 bpm in atrial fibrillation. He has been giving some digoxin aliquots. He remains completely asymptomatic at this time. Cardiology was called for evaluation due to his elevated heart rate as well as blood pressure. [facility] Medical History Atrial fibrillation Coronary artery disease GERD (gastroesophageal reflux disease) Hypertension Sleep apnea Home Medications apixaban 2.5 mg tablet (Eliquis) 2.5 mg PO BID AFIB 07/18/22 [History Last Taken 07/18/22] atorvastatin 80 mg tablet 80 mg PO DAILY CHOLESTEROL 07/18/22 [History Last Taken 07/18/22] magnesium 250 mg tablet 250 mg PO DAILY SUPPLEMENT 07/18/22 [History Last Taken 07/18/22] metoprolol succinate 100 mg tablet,extended release 24 hr 100 mg PO DAILY HEART 07/18/22 [History Last Taken 07/18/22] zpfxdxku-rchwwnfl-uhvsr acid 400 mcg-vit K 20 mcg-lycop 300 mcg tablet (One-A-Day Men's Multivitamin) 1 tab PO DAILY SUPPLEMENT 07/18/22 [History Last Taken 07/18/22] potassium gluconate 550 mg (90 mg) tablet 550 mg PO DAILY SUPPLEMENT 07/18/22 [History Last Taken 07/18/22] saw palmetto 450 mg capsule 450 mg PO DAILY SUPPLEMENT 07/18/22 [History Last Taken 07/18/22] Allergy/AdvReac Type Severity Reaction Status Date / Time Penicillins Allergy Other Verified 07/18/22 15:06 shellfish derived Allergy Vomiting Verified 07/18/22 15:06 amiodarone AdvReac Rash Verified 07/18/22 15:06 Surgical History Hx of CABG Social History Smoking Status: Former smoker ROS Constitutional Constitutional: Denies fever(s) or weight loss Eyes Eyes: Reports systems reviewed and no addt'l complaints, except as documented ENT HEENT: Reports systems reviewed and no addt'l complaints, except as documented Cardiovascular Cardiovascular: Reports dyspnea at rest, dyspnea on exertion and palpitations; Denies chest pain at rest, chest pain with activity, edema or paroxysmal nocturnal dyspnea Respiratory/Chest Respiratory/Chest: Denies dyspnea on exertion, productive cough, shortness of breath at rest or shortness of breath with exertion Gastrointestinal Gastrointestinal: Denies change in bowel habits, nausea, vomiting or weight changes Genitourinary Genitourinary: Denies difficulty urinating Musculoskeletal Musculoskeletal: Denies joint stiffness or muscle weakness Integumentary Integumentary: Denies lesions Neurologic Neurologic: Denies dizziness or syncope Psychiatric Psychiatric: Denies anxiety Endocrine Endocrinology: Denies excessive sweating or fatigue Hematologic/Lymphatic Hematologic/Lymphatic: Denies anemia Allergic/Immunologic Allergic/Immunologic: Denies seasonal rhinorrhea Risk Stratification Risk Stratification Applicable: No Objective Data Vital Signs: Vital Signs Temp Pulse Resp BP Pulse Ox O2 Del Method O2 Flow Rate 97.8 F 119 H 20 H 95/72 98 Room Air 2 07/20/22 10:14 07/20/22 10:14 07/20/22 10:14 07/20/22 10:14 07/20/22 10:14 07/20/22 10:14 07/20/22 07:15 Oxygen Flow Rate (L/min) 2 Oxygen Delivery Method Room Air Weight: 230 lb 9.656 oz Body Mass Index (BMI) 33.0 Intake & Output: Intake and Output for Last 24 Hours 07/18/22 07/19/22 07/20/22 23:59 23:59 23:59 Intake Total 1200.67 / 1615.67 1898.00 / 2098.00 2136.67 / 2136.67 Balance 1200.67 / 1615.67 1898.00 / 2098.00 2136.67 / 2136.67 Lab / Micro Data Result Diagrams: 07/20/22 03:30 07/20/22 03:30 Labs: Laboratory Results - last 24 hr 07/19/22 17:40: TSH 3.47 07/20/22 03:30: WBC 9.1, RBC 4.85, Hgb 13.6, Hct 41.8, MCV 86.2, MCH 28.0, MCHC 32.5, RDW Std Deviation 47.0 H, RDW Coeff of David 14.9 H, Plt Count 144 L, MPV 10.3, Immature Gran % (Auto) 0.300, Neut % (Auto) 76.6 H, Lymph % (Auto) 11.9 L, [place] % (Auto) 9.7, Eos % (Auto) 1.3, Baso % (Auto) 0.2, Absolute Neuts (auto) 6.9, Absolute Lymphs (auto) 1.08, Nucleated RBC % 0 07/20/22 03:30: Sodium 139, Potassium 4.3, Chloride 109 H, Carbon Dioxide 22.0, Anion Gap 8, BUN 35 H, Creatinine 1.37 H, Estim Creat Clear Calc 45.88, Est GFR (MDRD) Af Amer 65, Est GFR (MDRD) Non-Af 53 L, BUN/Creatinine Ratio 25.5 H, Glucose 117 H, Calcium 7.8 L Rhythm Strip Rhythm Strip: Sinus Rhythm Rate: 68 Cardiology Labs/Tests 07/20/22 03:30: WBC 9.1, RBC 4.85, Hgb 13.6, Hct 41.8, MCV 86.2, MCH 28.0, MCHC 32.5, Plt Count 144 L, MPV 10.3, Immature Gran % (Auto) 0.300, Neut % (Auto) 76.6 H, Lymph % (Auto) 11.9 L, [place] % (Auto) 9.7, Eos % (Auto) 1.3, Baso % (Auto) 0.2, Absolute Neuts (auto) 6.9, Nucleated RBC % 0 07/20/22 03:30: Sodium 139, Potassium 4.3, Chloride 109 H, Carbon Dioxide 22.0, Anion Gap 8, BUN 35 H, Creatinine 1.37 H, Est GFR (MDRD) Af Amer 65, Est GFR (MDRD) Non-Af 53 L, BUN/Creatinine Ratio 25.5 H, Glucose 117 H, Calcium 7.8 L Rhythm: EKG: ECHO: Stress Test: Cardiac Cath: PCI: CT Surgery: Holter monitor: EPS: PPM: CXR: Chest CT Scan: Radiography Diagnostic Testing: Radiology Impression Echocardiogram 07/18/22 19:34 Interpretation Summary Normal LV size. Moderate concentric left ventricular hypertrophy. Left ventricular systolic function is lower limits of normal. The estimated ejection fraction is 50 %. There is borderline global hypokinesis of the left ventricle. The left atrium is mildly enlarged. Moderate (2+) eccentric mitral valve insufficiency. Mild to moderate (1-2+) tricuspid valve insufficiency. Bioprosthetic aortic valve. Ordering Physician: Luis Felipe Abdul Referring Physician: Rayo Allred M.D. Performed By: Bailee Felix RCS
--- NOTE | 2022-07-20 11:38 | CASEMGMT ---
Social Work SW met w/pt this morning to inquire about completing LW/POA. Pt states he is still thinking about it. SW left the forms w/pt and explained if he is still here Friday, SW can check back again w/him about completing the documents. SW also gave pt the number to the social work department should he decide he would like to wait until after his hospitalization to do the forms. Pt states he may be moving to [place]--SW encouraged him to still do the forms here, and if he moves to [place] can always re-do them in [place]. Pt states understanding. SW to follow up Friday as time allows to assist pt in completing LW/POA. Kristy SHI
[2022-07-20] MEDS: Calcium Carbonate 500 MG Tablet PO ×2 (11:54→22:14)
[2022-07-20] MEDS: Metoprolol Tartrate 50 MG Tablet PO ×2 (11:56→22:05)
[2022-07-20] MEDS: Tamsulosin HCl 0.4 MG Capsule PO (22:05)
[2022-07-20] MEDS: Atorvastatin Calcium 80 MG Tablet PO (22:05)
[2022-07-21 00:05] VITALS: BP 127/73; PULSE 108; RESP 20; TEMP 37.2; O2SAT 92
[2022-07-21 04:25] VITALS: BP 133/72; PULSE 104; RESP 18; TEMP 37.2; O2SAT 96
[2022-07-21 05:45] LABS: Anion Gap 6 (5-15); BUN 27 mg/dL (7-18); BUN/Creat Ratio 22.3 RATIO (10-20); Calcium,Total 7.9 mg/dL (8.5-10.1); Chloride 111 mmol/L (98-107); Creatinine, Serum 1.21 mg/dL (0.70-1.30); EST Glomerular Filtration Rate 62 mL/min (>60); Est Glom Filt Rate - Afr Amer 75 mL/min (>60); Estimated Creatinine Clearance 51.95 ml/min; Glucose 115 mg/dL (74-106); Magnesium 1.9 mg/dL (1.6-2.6); Phosphorus 2.1 mg/dL (2.5-4.9); Sodium Level 140 mmol/L (136-145)
--- NOTE | 2022-07-21 07:06 | PCM.PN.INT ---
Assessment & Plan Assessment/Plan (1) Atrial fibrillation with rapid ventricular response: (2) CHF (congestive heart failure): PLAN: Plan RECOMMENDATIONS: 1. Appreciate cardiology 2. Hemodynamically stable on room air 3. Increase activity as tolerated 4. Continue anticoagulation with 10 a inhibitor 5. We will sign off from a pulmonary/critical care perspective IMPRESSIONS: 1. A. fib with RVR/CAD status post CABG/hypertension/hyperlipidemia Patient appears to be doing well at this time. Cardizem and beta-blockers has been difficult secondary to hypotension. Beta-blockers have not been effective. Unfortunately, amiodarone appears to cause rash and requires Benadryl making this a poor long-term solution. Unclear if patient would be a candidate for sotalol, flecainide or possible EP study. We will consult cardiology for recommendations 2. Hypotension Clinical suspicion for hypotension secondary to medications. Patient is currently in A. fib again. Patient appears to be tolerating current regimen better without hypotension. Would recommend using caution with fluid boluses as this could lead to congestive heart failure 3. Right lower lobe infiltrate Low clinical suspicion for pneumonia at this time with lack of fever, leukocytosis and productive cough. However, it is reasonable to treat with antibiotics for 48 hours pending culture data. If patient is not having any fevers or leukocytosis in the next 24 this can likely be discontinued. Congestive heart failure would be a concern, but should be improved with better rate control. 4. Possible acute kidney injury Slightly improving. Patient's creatinine is significantly elevated above 2020 values. Interim data is not available. We will continue hemodynamic support and monitor renal function. There is no indication for renal replacement therapy at this time. 5. BPH/advanced age/poor historian/obesity/PAOLA Complicates care, management, recovery and prognosis. Patient is on Flomax. This may be exacerbating hypotension. Subjective Subjective Patient did well overnight. No acute issues are reported. Patient overall feels subjectively slightly improved compared to yesterday. Patient's heart rate has been relatively controlled without any hypotension. No boluses have been required. Objective Data Objective Data Patient remains in A. fib., But there are some periods of brief sinus rhythm. Vital Signs: Vital Signs Temp Pulse Resp BP Pulse Ox O2 Del Method O2 Flow Rate 37.2 C 104 H 18 133/72 H 96 Nasal Cannula 2 07/21/22 04:25 07/21/22 04:25 07/21/22 04:25 07/21/22 04:25 07/21/22 04:25 07/21/22 04:25 07/21/22 04:25 Oxygen Flow Rate (L/min) 2 Oxygen Delivery Method Nasal Cannula Weight: 104.5 kg Body Mass Index (BMI) 33.0 Intake & Output: Intake and Output for Last 24 Hours 07/19/22 07/20/22 07/21/22 23:59 23:59 23:59 Intake Total 1897. / 2097. 3631.67 / 3631.67 Balance 189.2097. 3631.67 / 3631.67 Lab / Micro Data Result Diagrams: 07/20/22 03:30 07/21/22 04:55 Labs: Laboratory Results - last 24 hr 07/21/22 04:55: Sodium 140, Potassium 4.0, Chloride 111 H, Carbon Dioxide 23.0, Anion Gap 6, BUN 27 H, Creatinine 1.21, Estim Creat Clear Calc 51.95, Est GFR (MDRD) Af Amer 75, Est GFR (MDRD) Non-Af 62, BUN/Creatinine Ratio 22.3 H, Glucose 115 H, Calcium 7.9 L, Phosphorus 2.1 L, Magnesium 1.9 Micro: Microbiology 07/18/22 17:15 Nasal Secretion SARS-CoV-2 & FLU Antigen (Rapid) - Final Rhythm Strip Rhythm Strip: A-fib Rate: 106 Physical Exam Const alert and oriented x3 Constitutional Narrative: No conversational dyspnea. General Appearance: cooperative and well developed HEENT normocephalic, head/scalp atraumatic and moist oral mucous membranes Eyes PERRL, EOMs intact bilaterally and conjunctivae normal Neck full ROM and no lymphadenopathy Chest inspection of chest normal Resp normal respiratory effort and no use of accessory muscles Effort and Inspection: able to speak in complete sentences Auscultation: clear to auscultation bilaterally; Negative for rales, rhonchi or wheezes Percussion: Negative for dullness Cardio S1 normal heart sound, S2 normal heart sound, no murmurs, no rub and no gallops Cardio Narrative: A. fib noted on telemetry GI normal to inspection, nondistended, normoactive bowel sounds no CVA tenderness Extremity General Extremity: Negative for clubbing or edema Skin no rashes or lesions noted Neuro oriented x3, CN's II-XII intact bilaterally, moves all extremities and no focal motor deficits Psych cooperative and affect normal Charges/Coding Visit Charges Inpatient E&M: 04980 Subs Hosp L2
[2022-07-21 07:32] VITALS: O2SAT 95
[2022-07-21] MEDS: Na Biphos/Potassium Phosphate PACKET 2 PACKET PO (07:59)
[2022-07-21] MEDS: Menthol/Lanolin/Calamine/Znox 113 GM Tube 1 APPLIC TOPICAL (08:00)
[2022-07-21 08:01] VITALS: BP 122/91; PULSE 111
[2022-07-21] MEDS: Metoprolol Tartrate 50 MG Tablet PO (08:01)
[2022-07-21] MEDS: APIXABAN 5 MG TABLET PO (08:01)
[2022-07-21 09:00] VITALS: BP 122/91; PULSE 100; RESP 16; TEMP 37.2; O2SAT 94
[2022-07-21] MEDS: Ceftriaxone 1 GM/50 ML BAG IV (09:03)
--- NOTE | 2022-07-21 09:33 | PCM.PN.CARD ---
Subjective Subjective Patient seen and evaluated and appears to be doing much better. Objective Data Vital Signs: Vital Signs Temp Pulse Resp BP Pulse Ox O2 Del Method O2 Flow Rate 98.9 F 111 H 18 122/91 H 95 Room Air 2 07/21/22 04:25 07/21/22 08:01 07/21/22 04:25 07/21/22 08:01 07/21/22 07:32 07/21/22 07:32 07/21/22 04:25 Oxygen Flow Rate (L/min) 2 Oxygen Delivery Method Room Air Weight: 230 lb 6.129 oz Body Mass Index (BMI) 33.0 Intake & Output: Intake and Output for Last 24 Hours 07/19/22 07/20/22 07/21/22 23:59 23:59 23:59 Intake Total 1898.00 / 2098.00 3631.67 / 3631.67 1000 / 1000 Balance 1898.00 / 2098.00 3631.67 / 3631.67 1000 / 1000 Lab / Micro Data Result Diagrams: 07/20/22 03:30 07/21/22 04:55 Labs: Laboratory Results - last 24 hr 07/21/22 04:55: Sodium 140, Potassium 4.0, Chloride 111 H, Carbon Dioxide 23.0, Anion Gap 6, BUN 27 H, Creatinine 1.21, Estim Creat Clear Calc 51.95, Est GFR (MDRD) Af Amer 75, Est GFR (MDRD) Non-Af 62, BUN/Creatinine Ratio 22.3 H, Glucose 115 H, Calcium 7.9 L, Phosphorus 2.1 L, Magnesium 1.9 Rhythm Strip Rhythm Strip: A-fib Rate: 106 Cardiology Labs/Tests 07/21/22 04:55: Sodium 140, Potassium 4.0, Chloride 111 H, Carbon Dioxide 23.0, Anion Gap 6, BUN 27 H, Creatinine 1.21, Est GFR (MDRD) Af Amer 75, Est GFR (MDRD) Non-Af 62, BUN/Creatinine Ratio 22.3 H, Glucose 115 H, Calcium 7.9 L, Phosphorus 2.1 L, Magnesium 1.9 Rhythm: EKG: ECHO: Stress Test: Cardiac Cath: PCI: CT Surgery: Holter monitor: EPS: PPM: CXR: Chest CT Scan: Physical Exam Const alert and oriented x3 Constitutional Narrative: No conversational dyspnea. General Appearance: cooperative and well developed HEENT normocephalic, head/scalp atraumatic and moist oral mucous membranes Eyes PERRL, EOMs intact bilaterally and conjunctivae normal Neck full ROM and no lymphadenopathy Chest inspection of chest normal Resp normal respiratory effort and no use of accessory muscles Effort and Inspection: able to speak in complete sentences Auscultation: clear to auscultation bilaterally; Negative for rales, rhonchi or wheezes Percussion: Negative for dullness Cardio S1 normal heart sound, S2 normal heart sound, no murmurs, no rub and no gallops Cardio Narrative: A. fib noted on telemetry GI normal to inspection, nondistended, normoactive bowel sounds no CVA tenderness Extremity General Extremity: Negative for clubbing or edema Skin no rashes or lesions noted Neuro oriented x3, CN's II-XII intact bilaterally, moves all extremities and no focal motor deficits Psych cooperative and affect normal Assessment & Plan Assessment/Plan (1) Atrial fibrillation with rapid ventricular response: PLAN: He does have atrial fibrillation with a rapid ventricular response rate. He appears to be doing better at this time. I would recommend that we continue him on the beta-marcela but with short acting beta-marcela with Lopressor 50 mg twice a day. I am hesitant to continue the digoxin due to his renal dysfunction. He appears to be stable and can be discharged on outpatient medication. Depending on the findings further recommendations will be made. (2) Hypertension: PLAN: His blood pressure appears to be under fair control at this time I would not recommend that we make any changes. (3) CHF (congestive heart failure): PLAN: He does have evidence of heart failure with borderline ejection fraction. We will continue with cautious diuresis.
--- NOTE | 2022-07-21 09:34 | DCINST_ITS ---
Discharge Instructions Diet Discharge Diet: Low fat / Low cholesterol Activity Discharge Activity: Return to Normal Activity Dressing / Incision Call your doctor if you observe: Fever of 101 or Higher, Shortness of breath, Dizziness, Fainting spells, Swelling in the ankles, Chest pain and Increased palpitations (irregular heartbeat) Follow Up Care Test Results: Test results from this visit will be discussed in further detail at your follow- up appointment, if applicable. Discharge Plan Admission Admit Date/Time: 07/18/22 18:53 Attending Provider: Carroll Jiménez Primary Care Provider: Rayo Allred Consulting Providers: Luis Felipe Abdul ; Coy Kaba ; Macario Ortega ; Hector Harris ; Power Cardenas ; Claire Hill NP ; Darryl Mccauley Instructions Additional Instructions / Restrictions: Follow-up with your PCP as an outpatient to monitor your renal function as you will be started on Lasix which can affect renal function. Discharge Orders/Prescriptions Prescriptions: New metoprolol tartrate 50 mg Tablet 50 mg PO BID Qty: 60 0RF cefdinir 300 mg capsule 300 mg PO BID 2 Days Qty: 4 0RF furosemide [Lasix] 20 mg tablet 20 mg PO DAILY Qty: 30 0RF Continued atorvastatin 80 mg tablet 80 mg PO DAILY magnesium 250 mg Tablet 250 mg PO DAILY saw palmetto 450 mg Capsule 450 mg PO DAILY Rx Instructions: give with food (meal/snack) One-A-Day Men's Multivitamin 400-20-300 mcg Tablet 1 tab PO DAILY potassium gluconate 550 mg (90 mg) Tablet 550 mg PO DAILY Eliquis 2.5 mg tablet 2.5 mg PO BID Discontinued metoprolol succinate 100 mg tablet extended release 24 hr 100 mg PO DAILY Label Comments: TAKE 1 TABLET BY MOUTH EVERY DAY Referrals / Follow Up: Rayo Allred MD [Primary Care Provider] - Within 1 Week Disposition Disposition (needs filled in before D/C Order can be placed): Home, Self Care
[2022-07-21 09:38] VITALS: BP 111/67; PULSE 94; RESP 18; O2SAT 96
--- NOTE | 2022-07-21 11:57 | PCM.DC.SUM ---
Providers Date of Admission: 07/18/22 Primary Care Physician: Dr. Rayo Allred MD Consultations 07/19/22 12:10 Consult: Brand Planner / Pulmonary Medicine Routine Consulting Provider: Pulmonary Medicine elise Whitley Reason for Consult: hypotension EMERGENT Consult: No Notified: Yes Date Notified: 07/19/22 Time Notified: 12:10 Method of Notification: Verbal 07/20/22 06:19 Consult: Cardiology Routine Consulting Provider: Darryl Mccauley Reason for Consult: a-fib RVR, hypotension EMERGENT Consult: No Notified: Yes Date Notified: 07/20/22 Time Notified: 06:19 Method of Notification: Text Reason For Visit: A-FIB WITH RVR Diagnosis Discharge Diagnosis (1) Atrial fibrillation with rapid ventricular response: Status: Acute Code(s): I48.91 - Unspecified atrial fibrillation (2) Hypertension: Status: Chronic Code(s): I10 - Essential (primary) hypertension (3) CHF (congestive heart failure): Status: Acute Code(s): I50.9 - Heart failure, unspecified Plan 1. Chronic A. fib with RVR/CAD status post CABG/HTN/HLD ? There is some concern about compliance issues and while he is oriented there has been some odd behaviors that would be consistent with dementia ? We will consult cardiology secondary to his recurrent A. fib and his inability to tolerate Cardizem or beta-blockers because his pressures will drop. He was given a dose of digoxin overnight and he states that he may have been on sotalol in the past ? Continue with his Lipitor ? Echo with an EF of 50% and borderline global hypokinesis of the left ventricle ? Continue with Eliquis for his bioprosthetic aortic valve as well as his A. fib 2. Right lower lobe community-acquired pneumonia/MARTY ? We will monitor his renal function ? Continue with his Rocephin and azithromycin 3. BPH ? Stable ? Start him on Flomax DVT: Eliquis Medications at Discharge Home Medications apixaban 2.5 mg tablet (Eliquis) 2.5 mg PO BID AFIB 07/18/22 atorvastatin 80 mg tablet 80 mg PO DAILY CHOLESTEROL 07/18/22 magnesium 250 mg tablet 250 mg PO DAILY SUPPLEMENT 07/18/22 jxojizlf-iybgvejk-xylrj acid 400 mcg-vit K 20 mcg-lycop 300 mcg tablet (One-A-Day Men's Multivitamin) 1 tab PO DAILY SUPPLEMENT 07/18/22 potassium gluconate 550 mg (90 mg) tablet 550 mg PO DAILY SUPPLEMENT 07/18/22 saw palmetto 450 mg capsule 450 mg PO DAILY SUPPLEMENT 07/18/22 cefdinir 300 mg capsule 300 mg PO BID 2 days #4 caps 07/21/22 furosemide 20 mg tablet (Lasix) 20 mg PO DAILY #30 tabs 07/21/22 metoprolol tartrate 50 mg tablet 50 mg PO BID #60 tabs 07/21/22 Hospital Course Operations None Procedures 2-D Echocardiogram Summary of Care Provided Minutes Spent on Discharge: 38 Hospital Course: Per HPI: JORGE ORDOÑEZ, is a 77 M who presents to the emergency room at [facility] for evaluation of shortness of breath, patient is a poor informant, he says he has been short of breath for the last few days.? Patient states that shortness of breath is mostly on exertion. ?Patient brought medical records from his physician's office that shows he was in his PCPs office on 05 July 2022 and was told to go to the emergency room for evaluation-patient does not give a reason why he did not go to the ER, he states he felt he would get better on his own.? It appears the patient was in atrial fibrillation at that time with a fast ventricular response. There is also another visit from approximately a week later-I believe July 10, 2022 which also tells the patient to go to the emergency room for evaluation for rapid heart rate.? Patient did not go to the emergency room however. Patient admits to having a history of A. fib in the past, he was on full dose Eliquis at 5 mg twice daily but he states he had some bruising and was told to decrease his dosage.? Patient does not follow-up with a retail and promotions coordinator on a routine basis, he admits to having a coronary artery bypass 3 years ago. Work-up in the emergency room included an EKG which showed his heart rate to be 160, chest x-ray was performed which showed a right lower lobe infiltrate along with effusion.? Patient CBC was unremarkable, patient's CHEM panel showed a creatinine of 1.97, BUN was 46, and his beta natruretic peptide was 682. Patient's blood pressure was running in the high 80s systolic in the emergency room, he was given a 500 cc fluid bolus and at the time of this dictation, his systolic blood pressure is in the low 100s.? Patient is yet to be placed on Cardizem drip in the ER, he will be placed in stepdown on PCU but he will need to be transferred to ICU 203 due to bed availability. ?I had a brief discussion with him and his daughter (by phone) about his allergy to amiodarone-patient does not remember what kind of allergy he had to amiodarone-the medical records list it as a rash, patient knows that we may have to use amiodarone for rate control and the daughter would like him placed on Benadryl if we have to use amiodarone. ?Patient denies any history of having severe allergic reaction to amiodarone in the past. Hospital Course: 1.? Chronic A. fib with RVR/CAD status post CABG/HTN/HLD ? There is some concern about compliance issues and while he is oriented there has been some odd behaviors that would be consistent with dementia ? We will consult cardiology secondary to his recurrent A. fib and his inability to tolerate Cardizem or beta-blockers because his pressures will drop.? He was given a dose of digoxin overnight and he states that he may have been on sotalol in the past, given his renal function and his potassium will not discharge him on digoxin ? Continue with his Lipitor ? Echo with an EF of 50% and borderline global hypokinesis of the left ventricle, will start him on a low-dose p.o. Lasix on discharge with outpatient follow-up for his renal function ? Continue with Eliquis for his bioprosthetic aortic valve as well as his A. fib ? Will continue with short acting metoprolol 50 mg p.o. twice daily on discharge instead of his succinate dosing of 100 mg daily. We will also continue with cefdinir for another 2 days to complete 5 days worth of pneumonia treatment. I discussed with him the plan for discharge today he expressed understanding of the risk benefits of going home and is okay with going home today. He does have some lower extremity edema but had never been on Eliquis prior to this admission. Would recommend outpatient follow-up with his PCP in 3 to 5 days as well as cardiology within the next month or 2. 2.? Right lower lobe community-acquired pneumonia/MARTY ? We will monitor his renal function, MARTY is resolved ? Completed azithromycin, continue with cefdinir on discharge 3.? BPH ? Stable ? Start him on Flomax Physical Exam Narrative General: Alert, Oriented x3, Cooperative, No apparent distress HEENT: Atraumatic, PERRLA, EOMI, Normocephalic Oral: Moist Mucosa Neck: Supple, No JVD Lungs: Diminished, Normal air movement, No rhonchi, No wheeze, No rales Cardiovascular: Regular rate and rhythm, Normal S1, Normal S2, No murmurs Abdomen: Soft, Non Tender, Non-Distended, No Hepato-splenomegaly Extremities: edema, Capillary Refill Less than 3 Seconds Skin: No rashes, No breakdown Musculoskeletal: No Tenderness to Palpation of Joints or Extremities Neurological: Cranial nerves II-XII grossly intact, Motor Exam 5/5 strength throughout, Sensory exam intact to light touch and pain Psych/Mental Status: Normal Affect, Appropriate Weight / BMI Weight Weight: 230 lb 6.129 oz Body Mass Index (BMI) 33.0 ABG / Lab / Microbiology Data Result Diagrams: 07/20/22 03:30 07/21/22 04:55 Laboratory: Laboratory Results - last 24 hr 07/21/22 04:55: Sodium 140, Potassium 4.0, Chloride 111 H, Carbon Dioxide 23.0, Anion Gap 6, BUN 27 H, Creatinine 1.21, Estim Creat Clear Calc 51.95, Est GFR (MDRD) Af Amer 75, Est GFR (MDRD) Non-Af 62, BUN/Creatinine Ratio 22.3 H, Glucose 115 H, Calcium 7.9 L, Phosphorus 2.1 L, Magnesium 1.9 Microbiology: Microbiology 07/18/22 17:15 Nasal Secretion SARS-CoV-2 & FLU Antigen (Rapid) - Final D/C Instructions Discharge Diet: Low fat / Low cholesterol Call your doctor if you observe: Fever of 101 or Higher, Shortness of breath, Dizziness, Fainting spells, Swelling in the ankles, Chest pain and Increased palpitations (irregular heartbeat) Meaningful Use Info Meaningful Use Diagnoses (Choose all that apply): None applicable Discharge Plan Admission Admit Date/Time: 07/18/22 18:53 Attending Provider: Carroll Jiménez Primary Care Provider: Rayo Allred Consulting Providers: Luis Felipe Abdul ; Coy Kaba ; Macario Ortega ; Hector Harris ; Power Cardenas ; [place] [employer]SEM[employer]Y CLEANER ; Darryl Mccauley Instructions Additional Instructions / Restrictions: Follow-up with your PCP as an outpatient to monitor your renal function as you will be started on Lasix which can affect renal function. Discharge Orders/Prescriptions Prescriptions: New metoprolol tartrate 50 mg Tablet 50 mg PO BID Qty: 60 0RF cefdinir 300 mg capsule 300 mg PO BID 2 Days Qty: 4 0RF furosemide [Lasix] 20 mg tablet 20 mg PO DAILY Qty: 30 0RF Continued atorvastatin 80 mg tablet 80 mg PO DAILY magnesium 250 mg Tablet 250 mg PO DAILY saw palmetto 450 mg Capsule 450 mg PO DAILY Rx Instructions: give with food (meal/snack) One-A-Day Men's Multivitamin 400-20-300 mcg Tablet 1 tab PO DAILY potassium gluconate 550 mg (90 mg) Tablet 550 mg PO DAILY Eliquis 2.5 mg tablet 2.5 mg PO BID Discontinued metoprolol succinate 100 mg tablet extended release 24 hr 100 mg PO DAILY Label Comments: TAKE 1 TABLET BY MOUTH EVERY DAY Referrals / Follow Up: Rayo Allred MD [Primary Care Provider] - Within 1 Week Disposition Disposition (needs filled in before D/C Order can be placed): Home, Self Care Charges/Coding Visit Charges Inpatient E&M: 41598 Disch Hosp >30min
== END 2022-07-21 12:15 | disposition home or self-care (01) | DRG 308 ==
LOC: ED 17:46 → ICU 19:02
PROVIDERS: Internal Medicine Critical Care Medicine; Admitting Provider Internal Medicine; Emergency Provider Emergency Medicine; PCP Internal Medicine; Visit Provider Family Medicine
DX: I48.20 Chronic atrial fibrillation, unspecified (principal); J18.9 Pneumonia, unspecified organism; I13.0 Hypertensive heart and chronic kidney disease with heart failure and stage 1 through stage 4 chronic kidney disease, or unspecified chronic kidney disease; N17.9 Acute kidney failure, unspecified; I50.9 Heart failure, unspecified; I95.9 Hypotension, unspecified; E78.5 Hyperlipidemia, unspecified; N18.9 Chronic kidney disease, unspecified; I25.10 Atherosclerotic heart disease of native coronary artery without angina pectoris; G47.33 Obstructive sleep apnea (adult) (pediatric); Z87.891 Personal history of nicotine dependence; N40.0 Benign prostatic hyperplasia without lower urinary tract symptoms; E66.9 Obesity, unspecified; Z79.01 Long term (current) use of anticoagulants; Z95.1 Presence of aortocoronary bypass graft; Z68.33 Body mass index [BMI] 33.0-33.9, adult; Z95.2 Presence of prosthetic heart valve
CPT/HCPCS: 71045; 80048; 83735; 83880; 84100; 84443; 84484; 85025; 87040; 87428; 93005; 93306; 99285; J7030; J7040; J7050; Q9957; A4216; J0153